=== PATIENT | male | born 1935 | race Caucasian/White ===

== ENCOUNTER 2017-04-12 07:15 | Inpatient (IN) | payer OTHER, MEDICARE ==
[2017-04-12] MEDS ORDERED: IPRATROPIUM-ALBUTEROL 3 ML NEB INHALATION STA (07:33)
--- NOTE | 2017-04-12 07:44 | ED ---
General Adult HPI - General Stated complaint: SOB Time Seen by Provider: 04/12/17 07:23 Source: patient, EMS, RN notes reviewed Mode of arrival: EMS Limitations: physical limitation - History of Present Illness Initial comments: Patient is a pleasant 82-year-old male presenting to the emergency Department with complaints of difficulty breathing and generalized weakness. Patient does wear CPAP at nighttime. Patient woke up at 3 AM to use the bathroom. Patient was too weak to get out of bed and did slide out of bed, no injury. Patient was unable to get up since that time. Patient complains of increasing shortness of breath since that time. Patient does have a history of similar symptoms previously associated with COPD and CHF. No isolated area of weakness. No confusion. - Related Data Home Medications Medication Instructions Recorded Confirmed Allopurinol [Zyloprim] 200 mg PO DAILY 06/01/14 04/12/17 Furosemide [Lasix] 40 mg PO DAILY 06/01/14 04/12/17 Ipratropium/Albuterol Sulfate 1 puff INHALATION RT-QID 06/01/14 04/12/17 [Combivent Respimat Inhaler] Lisinopril [Prinivil] 10 mg PO HS 06/01/14 04/12/17 Metoprolol Tartrate [Lopressor] 12.5 mg PO BID 06/01/14 04/12/17 Potassium Chloride [Klor-Con 10] 10 meq PO DAILY 06/01/14 04/12/17 Simvastatin [Zocor] 80 mg PO HS 06/01/14 04/12/17 Colchicine 0.6 mg PO DIRECTED PRN MDD 1.8MG 04/12/17 04/12/17 Allergies Allergy/AdvReac Type Severity Reaction Status Date / Time No Known Allergies Allergy Verified 04/12/17 07:58 Review of Systems ROS Statement: Those systems with pertinent positive or pertinent negative responses have been documented in the HPI. ROS Other: All systems not noted in ROS Statement are negative. Constitutional: Denies: fever Eyes: Denies: eye pain ENT: Denies: ear pain Respiratory: Reports: dyspnea Cardiovascular: Denies: chest pain Endocrine: Denies: fatigue Gastrointestinal: Denies: abdominal pain Genitourinary: Denies: dysuria Musculoskeletal: Denies: back pain Skin: Denies: rash Neurological: Reports: weakness Past Medical History Past Medical History: Atrial Fibrillation, Coronary Artery Disease (CAD), Heart Failure, COPD History of Any Multi-Drug Resistant Organisms: None Reported Past Surgical History: Orthopedic Surgery (Bilateral knee surgery) Additional Past Surgical History / Comment(s): eye Smoking Status: Former smoker Past Alcohol Use History: None Reported Past Drug Use History: None Reported General Exam Limitations: no limitations General appearance: alert, in no apparent distress Head exam: Present: atraumatic Eye exam: Present: normal appearance, PERRL ENT exam: Present: normal oropharynx Neck exam: Present: normal inspection Respiratory exam: Present: decreased breath sounds Cardiovascular Exam: Present: regular rate, normal rhythm GI/Abdominal exam: Present: soft. Absent: tenderness, guarding Extremities exam: Present: pedal edema (+1 bilateral which patient states is chronic), other (Patient has stool staining of both legs) Neurological exam: Present: alert, oriented X3, CN II-XII intact Expanded Patient oriented to: Present: person, place, time Speech: Present: fluid speech Sensory exam: Upper Extremity Light Touch: Normal, Lower Extremity Light Touch: Normal Motor strength exam: RUE: 5, LUE: 5, RLE: 3, LLE: 3 Psychiatric exam: Present: normal affect, normal mood Skin exam: Present: normal color Course Vital Signs 04/12/17 04/12/17 04/12/17 07:15 07:19 07:50 Temperature 97.1 F L Pulse Rate 90 83 Respiratory 26 H 26 H 24 Rate Blood Pressure 122/67 105/57 O2 Sat by Pulse 96 92 L Oximetry 04/12/17 04/12/17 04/12/17 07:52 08:01 08:05 Temperature Pulse Rate 85 89 88 Respiratory 24 Rate Blood Pressure 106/54 O2 Sat by Pulse 92 L Oximetry 04/12/17 04/12/17 04/12/17 08:20 08:52 09:05 Temperature Pulse Rate 88 87 78 Respiratory 24 24 24 Rate Blood Pressure 107/63 87/52 92/58 O2 Sat by Pulse 92 L 92 L 92 L Oximetry 04/12/17 04/12/17 04/12/17 09:08 09:39 09:46 Temperature Pulse Rate 70 Respiratory 24 Rate Blood Pressure 95/57 O2 Sat by Pulse 96 93 L Oximetry EKG Findings - EKG Comments: EKG Findings:: Sinus rhythm at 85. First-degree AV block CT of 312. QRS 120. QT 402. QTC 478. Left axis. Diffuse Q waves. No acute ST change. Poor R- wave progression. Medical Decision Making - Medical Decision Making Patient reevaluated and improving on his CPAP machine. Patient and family updated on results and plan. Case was discussed in detail with Dr. Hendrickson, who will admit for Dr. Cory Bhakta. He agrees with echo. Consults will be placed for cardiology and nephrology. Concern exists at this point with both evidence of congestive heart failure as well as renal failure and possible early rhabdomyolysis. Troponin is somewhat elevated and patient will be started on heparin. - Lab Data Result diagrams: 04/12/17 07:20 04/12/17 07:20 Lab Results 04/12/17 04/12/17 04/12/17 Range/Units 07:20 07:20 07:20 WBC 8.6 (3.8-10.6) k/uL RBC 4.12 L (4.30-5.90) m/uL Hgb 13.4 (13.0-17.5) gm/dL Hct 41.8 (39.0-53.0) % MCV 101.5 H (80.0-100.0) fL MCH 32.5 (25.0-35.0) pg MCHC 32.0 (31.0-37.0) g/dL RDW 15.6 H (11.5-15.5) % Plt Count 126 L (150-450) k/uL Neutrophils % 82 % Lymphocytes % 9 % Monocytes % 5 % Eosinophils % 2 % Basophils % 0 % Neutrophils # 7.1 (1.3-7.7) k/uL Lymphocytes # 0.7 L (1.0-4.8) k/uL Monocytes # 0.4 (0-1.0) k/uL Eosinophils # 0.2 (0-0.7) k/uL Basophils # 0.0 (0-0.2) k/uL Hypochromasia Slight Macrocytosis Slight PT (9.0-12.0) sec INR (<1.1) APTT (22.0-30.0) sec Sodium 143 (137-145) mmol/L Potassium 5.2 H (3.5-5.1) mmol/L Chloride 105 (98-107) mmol/L Carbon Dioxide 27 (22-30) mmol/L Anion Gap 11 mmol/L BUN 93 H* (9-20) mg/dL Creatinine 3.60 H (0.66-1.25) mg/dL Est GFR (MDRD) Af Amer 20 (>60 ml/min/1.73 sqM) Est GFR (MDRD) Non-Af 16 (>60 ml/min/1.73 sqM) Glucose 121 H (74-99) mg/dL Calcium 8.5 (8.4-10.2) mg/dL Magnesium 2.3 (1.6-2.3) mg/dL Total Bilirubin 1.0 (0.2-1.3) mg/dL AST 172 H (17-59) U/L ALT 111 H (21-72) U/L Alkaline Phosphatase 115 (38-126) U/L Total Creatine Kinase 3184 H (55-170) U/L CK-MB (CK-2) 50.5 H* (0.0-2.4) ng/mL CK-MB (CK-2) Rel Index Troponin I 0.331 H* (0.000-0.034) ng/mL NT-Pro-B Natriuret Pep pg/mL Total Protein 6.5 (6.3-8.2) g/dL Albumin 3.6 (3.5-5.0) g/dL 04/12/17 04/12/17 Range/Units 07:20 07:20 WBC (3.8-10.6) k/uL RBC (4.30-5.90) m/uL Hgb (13.0-17.5) gm/dL Hct (39.0-53.0) % MCV (80.0-100.0) fL MCH (25.0-35.0) pg MCHC (31.0-37.0) g/dL RDW (11.5-15.5) % Plt Count (150-450) k/uL Neutrophils % % Lymphocytes % % Monocytes % % Eosinophils % % Basophils % % Neutrophils # (1.3-7.7) k/uL Lymphocytes # (1.0-4.8) k/uL Monocytes # (0-1.0) k/uL Eosinophils # (0-0.7) k/uL Basophils # (0-0.2) k/uL Hypochromasia Macrocytosis PT 11.9 (9.0-12.0) sec INR 1.2 (<1.1) APTT 23.5 (22.0-30.0) sec Sodium (137-145) mmol/L Potassium (3.5-5.1) mmol/L Chloride (98-107) mmol/L Carbon Dioxide (22-30) mmol/L Anion Gap mmol/L BUN (9-20) mg/dL Creatinine (0.66-1.25) mg/dL Est GFR (MDRD) Af Amer (>60 ml/min/1.73 sqM) Est GFR (MDRD) Non-Af (>60 ml/min/1.73 sqM) Glucose (74-99) mg/dL Calcium (8.4-10.2) mg/dL Magnesium (1.6-2.3) mg/dL Total Bilirubin (0.2-1.3) mg/dL AST (17-59) U/L ALT (21-72) U/L Alkaline Phosphatase (38-126) U/L Total Creatine Kinase (55-170) U/L CK-MB (CK-2) (0.0-2.4) ng/mL CK-MB (CK-2) Rel Index Troponin I (0.000-0.034) ng/mL NT-Pro-B Natriuret Pep 76122 pg/mL Total Protein (6.3-8.2) g/dL Albumin (3.5-5.0) g/dL - Radiology Data Radiology results: image reviewed (Chest x-ray shows cardiomegaly, vascular congestion, small bilateral effusions.) Critical Care Time Critical Care Time: Yes Total Critical Care Time: 32 Disposition Clinical Impression: Congestive heart failure, Acute renal failure (ARF), Elevated troponin Disposition: ADMITTED IP TO THIS [facility] Condition: Serious Referrals: Chad Ashton DO [Primary Care Provider] - 1-2 days Decision Time: 09:53
--- NOTE | 2017-04-12 08:00 | XR ---
EXAMINATION TYPE: XR chest 1V portable DATE OF EXAM: 04/12/2017 HISTORY: Dyspnea. REFERENCE: NONE. FINDINGS: The heart is enlarged. There is a left-sided effusion and a smaller right-sided effusion. T here is vascular congestion without edema. IMPRESSION: 1. CARDIOMEGALY. 2. VASCULAR CONGESTION. 3. SMALL, BILATERAL EFFUSIONS.
[2017-04-12 08:08] LABS: Calcium 8.5 mg/dL (8.4-10.2); Magnesium 2.3 mg/dL (1.6-2.3); Potassium 5.2 mmol/L (3.5-5.1); Total Protein 6.5 g/dL (6.3-8.2)
[2017-04-12 08:16] LABS: INR 1.2 (<1.1); Partial Thromboplastin Time 23.5 sec (22.0-30.0); Prothrombin Time 11.9 sec (9.0-12.0)
[2017-04-12 08:21] LABS: Basophils % (A) 0 %; CH 31.2; Eosinophils # (A) 0.2 k/uL (0-0.7); Eosinophils % (A) 2 %; HCT 41.8 % (39.0-53.0); HDW 2.83; HGB 13.4 gm/dL (13.0-17.5); Hypochromasia Slight; Luc # (Auto) 0.15; Luc % (Auto) 2; Lymphocytes # (A) 0.7 k/uL (1.0-4.8); Lymphocytes % (A) 9 %; MCH 32.5 pg (25.0-35.0); MCV 101.5 fL (80.0-100.0); Macrocytosis Slight; Mean Platelet Volume 10.8; Monocytes # (A) 0.4 k/uL (0-1.0); Monocytes % (A) 5 %; Neutrophils # (A) 7.1 k/uL (1.3-7.7); Neutrophils % (A) 82 %; RBC 4.12 m/uL (4.30-5.90); RDW 15.6 % (11.5-15.5); WBC 8.6 k/uL (3.8-10.6); WBC (Perox) 8.69
[2017-04-12 08:48] LABS: Creatine Kinase MB 50.5 ng/mL (0.0-2.4); Troponin I 0.331 ng/mL (0.000-0.034)
[2017-04-12] MEDS ORDERED: ASPIRIN 325 MG TAB PO STA (09:55)
[2017-04-12] MEDS ORDERED: HEPARIN SODIUM,PORCINE 5,000 UNIT/ML 1 ML VIAL IV PRN (09:57)
[2017-04-12] MEDS ORDERED: HEPARIN SODIUM,PORCINE 5,000 UNIT/ML 1 ML VIAL IV ONE (09:57)
[2017-04-12] MEDS: HEPARIN SODIUM,PORCINE/D5W PMX 25,000 UNIT in DEXTROSE/WATER 1 500ML.BAG IV SCH (10:04)
[2017-04-12] MEDS: SODIUM CHLORIDE 0.9% 1,000 ML IV SCH (10:13)
--- NOTE | 2017-04-12 12:05 | ECHOF ---
Referral Reason:Dyspnea, CHF MEASUREMENTS -------- HEIGHT: 177.8 cm WEIGHT: 117.9 kg BP: 95/57 MV E Kai: 0.62 m/s MV DecT: 326 ms MV A Kai: 1.01 m/s MV E/A Ratio: 0.61 RAP: 5.00 mmHg RVSP: 40.13 mmHg FINDINGS -------- Undetermined rhythm. This was a technically difficult study with suboptimal views. There is mild concentric left ventricular hypertrophy. Overall left ventricular systolic function is moderately impaired with, an EF between 35 - 40 %. The right ventricle is severely enlarged. Bi-atrial enlargement. The right atrium is moderately enlarged. 1.5mg of Definity was utilized for enhancement of images Aortic valve is trileaflet and is mildly thickened. There is no evidence of aortic regurgitation. There is no evidence of aortic stenosis. The mitral valve leaflets are mildly thickened. Mild mitral annular calcification present. There is trace to mild mitral regurgitation. Mild tricuspid regurgitation present. There is mild pulmonary hypertension. The right ventricular systolic pressure, as measured by Doppler, is 40.13mmHg. The pulmonic valve was not well visualized. The aortic root size is normal. Normal inferior vena cava with normal inspiratory collapse consistent with estimated right atrial pressure of 5 mmHg. The pericardium is normal. There is no pericardial effusion. CONCLUSIONS -------- 1. Undetermined rhythm. 2. Mild mitral annular calcification present. 3. There is trace to mild mitral regurgitation. 4. Mild tricuspid regurgitation present. 5. There is mild pulmonary hypertension. 6. The right ventricular systolic pressure, as measured by Doppler, is 40.13mmHg. 7. The pulmonic valve was not well visualized. 8. The aortic root size is normal. 9. There is no pericardial effusion. 10. This was a technically difficult study with suboptimal views. 11. There is mild concentric left ventricular hypertrophy. 12. Overall left ventricular systolic function is moderately impaired with, an EF between 35 - 40 %. 13. The right ventricle is severely enlarged. 14. Bi-atrial enlargement. 15. 1.5mg of Definity was utilized for enhancement of images 16. Aortic valve is trileaflet and is mildly thickened. 17. The mitral valve leaflets are mildly thickened. DATA WAREHOUSING ARCHITECT: Moises Pedraza [facility]
[2017-04-12] MEDS: NITROGLYCERIN OINT 1 INCH/GM PACKET TOPICAL SCH ×3 (13:55→21:47)
--- NOTE | 2017-04-12 15:22 | P.HPIM ---
History of Present Illness H&P Date: 04/12/17 Chief Complaint: Difficulty breathing This is a 82-year-old gentleman with history of objective sleep apnea obesity hypertension previous history of tobacco use comes in to the hospital with complains of difficulty breathing and falls for the last 7 days Patient states that the he normally uses 3-4 L of supplemental oxygen has history of obstructive sleep apnea and uses the CPAP at night Patient apparently has been hypoxic on his basal count of oxygen and has been extremely weak. Patient does not have any history of congestive heart failure/ any history of CAD In the emergency room chest x-ray showed some concerns for mild cephalization. A BNP was elevated to 15,000 Renal dysfunction was noted At the time of my evaluation patient states that he feels slightly improved from admission No headaches blurry vision chest pain abdominal pain urinary urgency or frequency or lower extremity edema is reported no weight gain is reported no orthopnea or PND is reported apnea PND is reported Review of Systems All systems: negative (Noted in HPI) Past Medical History Past Medical History: Atrial Fibrillation, Heart Failure, COPD, Hyperlipidemia, Hypertension, Sleep Apnea/CPAP/BIPAP Additional Past Medical History / Comment(s): OPAL with CPAP, gout bilateral feet , malaria. History of Any Multi-Drug Resistant Organisms: None Reported Past Surgical History: Joint Replacement, Tonsillectomy Additional Past Surgical History / Comment(s): Total L hip arthroplasty, bilateral total knee arthroplasty, bilateral cataract removal with lens implants. Past Anesthesia/Blood Transfusion Reactions: No Reported Reaction Smoking Status: Former smoker - Past Family History Father Family Medical History: Myocardial Infarction ([place]) Additional Family Medical History / Comment(s): Father of a [place] at the age of 69yrs. Mother Family Medical History: Dementia Additional Family Medical History / Comment(s): Mother at the age of 90yrs. Medications and Allergies Home Medications Medication Instructions Recorded Confirmed Type Allopurinol [Zyloprim] 200 mg PO DAILY 06/01/14 04/12/17 History Furosemide [Lasix] 40 mg PO DAILY 06/01/14 04/12/17 History Ipratropium/Albuterol Sulfate 1 puff INHALATION RT-QID 06/01/14 04/12/17 History [Combivent Respimat Inhaler] Lisinopril [Prinivil] 10 mg PO HS 06/01/14 04/12/17 History Metoprolol Tartrate [Lopressor] 12.5 mg PO BID 06/01/14 04/12/17 History Potassium Chloride [Klor-Con 10] 10 meq PO DAILY 06/01/14 04/12/17 History Simvastatin [Zocor] 80 mg PO HS 06/01/14 04/12/17 History Colchicine 0.6 mg PO DIRECTED PRN MDD 1.8MG 04/12/17 04/12/17 History Allergies Allergy/AdvReac Type Severity Reaction Status Date / Time No Known Allergies Allergy Verified 04/12/17 07:58 Physical Exam Vitals: Vital Signs Temp Pulse Pulse Resp BP BP Pulse Ox 04/12/17 11:30 97.4 F L 99 20 120/62 95 04/12/17 11:08 97.8 F 77 24 101/52 04/12/17 09:46 93 L 04/12/17 09:39 70 24 95/57 04/12/17 09:08 96 04/12/17 09:05 78 24 92/58 92 L 04/12/17 08:52 87 24 87/52 92 L 04/12/17 08:20 88 24 107/63 92 L 04/12/17 08:05 88 24 106/54 92 L 04/12/17 08:01 89 04/12/17 07:52 85 04/12/17 07:50 83 24 105/57 92 L 04/12/17 07:19 97.1 F L 90 26 H 122/67 96 04/12/17 07:15 26 H Intake and Output 04/12/17 04/12/17 04/12/17 06:59 14:59 22:59 Intake Total 30 Output Total 400 Balance -370 Intake: Amount of Fluid Infused ( 30 ml) Oral 0 Output: Urine 400 Other: Weight 117.934 kg Patient Weight 04/13/17 06:59 Weight 117.934 kg Physical exam Gen. appearance oriented 3 in no distress Neck is supple no JVD Lungs breath sounds difficult to interpret due to the large body habitus Lower extremities chronic skin changes no significant edema noted Heart S1-S2 heard regular rate and rhythm no murmurs appreciated Abdomen is soft nontender no organomegaly bowel sounds are intact Neurologically cranial nerves II-12 grossly intact no focal motor or sensory deficits noted Skin no abnormalities appreciated Results CBC & Chem 7: 04/12/17 07:20 04/12/17 07:20 Labs: Abnormal Lab Results - Last 24 Hours (Table) 04/12/17 04/12/17 04/12/17 Range/Units 07:20 07:20 07:20 RBC 4.12 L (4.30-5.90) m/uL MCV 101.5 H (80.0-100.0) fL RDW 15.6 H (11.5-15.5) % Plt Count 126 L (150-450) k/uL Lymphocytes # 0.7 L (1.0-4.8) k/uL Potassium 5.2 H (3.5-5.1) mmol/L BUN 93 H* (9-20) mg/dL Creatinine 3.60 H (0.66-1.25) mg/dL Glucose 121 H (74-99) mg/dL AST 172 H (17-59) U/L ALT 111 H (21-72) U/L Total Creatine Kinase 3184 H (55-170) U/L CK-MB (CK-2) 50.5 H* (0.0-2.4) ng/mL Troponin I 0.331 H* (0.000-0.034) ng/mL 04/12/17 Range/Units 13:44 RBC (4.30-5.90) m/uL MCV (80.0-100.0) fL RDW (11.5-15.5) % Plt Count (150-450) k/uL Lymphocytes # (1.0-4.8) k/uL Potassium (3.5-5.1) mmol/L BUN (9-20) mg/dL Creatinine (0.66-1.25) mg/dL Glucose (74-99) mg/dL AST (17-59) U/L ALT (21-72) U/L Total Creatine Kinase (55-170) U/L CK-MB (CK-2) (0.0-2.4) ng/mL Troponin I 0.439 H* (0.000-0.034) ng/mL Thrombosis Risk Factor Assmnt - Choose All That Apply Any of the Below Risk Factors Present?: Yes Each Factor Represents 1 point: Heart failure (<1month), Obesity (BMI >25) Other Risk Factors: Yes Each Risk Factor Represents 3 Points: Age 75 years or older Other congenital or acquired thrombophilia - If yes, enter type in comment: No Thrombosis Risk Factor Assessment Total Risk Factor Score: 5 Thrombosis Risk Factor Assessment Level: High Risk Assessment and Plan Plan: Difficulty in breathing this is likely due to an acute exacerbation of systolic heart failure Mild to moderate pulmonary hypertension Objective sleep apnea Acute on chronic hypoxic respiratory failure Acute kidney injury likely prerenal due to pump failure History of hypertension Dyslipidemia Obesity Acute non-Q-wave [place] Plan Did discuss with cardiology there is no IVC compressibility with elevated right atrial pressure will attempt Lasix and an inotropic We'll obtain records from the previous hospitalization at [facility] Telemetry monitoring Strict I's and O's urine analysis urine protein and creatinine Blood pressure monitoring continue with heparinization as patient does have a troponin leak
[2017-04-12 16:23] LABS: Amorphous Sediment,Urine Rare /hpf; Appearance,Urine Cloudy (Clear); Bacteria,Urine Occasional /hpf; Bilirubin,Urine Negative (Negative); Glucose,Urine (UA) Negative (Negative); Ketones,Urine Negative (Negative); Leukocyte Esterase,Urine Negative (Negative); Mucus,Urine Rare /hpf; Nitrite,Urine Negative (Negative); Particle Count 10577; Protein,Urine 1+ (Negative); RBC,Urine <1 /hpf (0-5); Specific Gravity,Urine 1.012 (1.001-1.035); UA Billing (MACRO vs. MICRO) MICRO; Urobilinogen,Urine <2.0 mg/dL (<2.0); WBC,Urine 4 /hpf (0-5)
[2017-04-12] MEDS: DOBUTamine DRIP 500 MG in DEXTROSE/WATER 1 250ML.BAG IV SCH (17:00)
[2017-04-12] MEDS: IPRATROPIUM-ALBUTEROL 3 ML NEB INHALATION SCH ×2 (17:18→21:03)
[2017-04-12] MEDS ORDERED: TERBUTALINE FOR EXTRAVASATION 1 MG/ML VIAL SQ STA (21:10)
--- NOTE | 2017-04-12 21:12 | CT ---
EXAMINATION TYPE: CT chest wo con DATE OF EXAM: 04/12/2017 COMPARISON: NONE HISTORY: Difficulty breathing. Right sided effusion. CT DLP: 666 mGycm. Automated Exposure Control for Dose Reduction was Utilized. TECHNIQUE: CT scan of the thorax is performed without IV contrast. FINDINGS: There is patchy atelectasis at the lung bases. There is coarse interstitial infiltrate in both lungs. There is no pleural effusion. There is no sign of pulmonary mass. Heart is enlarged. Thoracic aorta is atheromatous. There is coronary artery calcification. There is no mediastinal adenopathy. There is spurring in the thoracic spine. There is no pericardial effusion. No significant pleural effusion. IMPRESSION: Pleural reaction and atelectasis at the lung bases. Fibrotic changes. Atherosclerotic vascular disease. Moderate cardiomegaly.
[2017-04-12] MEDS: FUROSEMIDE 10 MG/ML 10 ML VIAL IV SCH (21:43)
[2017-04-12] MEDS: METOPROLOL TARTRATE 12.5 MG TAB PO SCH (21:44)
[2017-04-13] MEDS: HEPARIN SODIUM,PORCINE/D5W PMX 25,000 UNIT in DEXTROSE/WATER 1 500ML.BAG IV SCH (06:41)
[2017-04-13 06:58] LABS: Basophils % (A) 0 %; CH 31.5; CHCM 30.1; Eosinophils # (A) 0.1 k/uL (0-0.7); Eosinophils % (A) 1 %; HCT 36.7 % (39.0-53.0); HDW 2.74; HGB 11.4 gm/dL (13.0-17.5); Hypochromasia Moderate; Large Platelets Flag Slight; Luc # (Auto) 0.18; Luc % (Auto) 3; Lymphocytes # (A) 0.6 k/uL (1.0-4.8); Lymphocytes % (A) 8 %; MCH 32.7 pg (25.0-35.0); MCHC 31.1 g/dL (31.0-37.0); MCV 105.1 fL (80.0-100.0); Macrocytosis Moderate; Mean Platelet Volume 11.1; Monocytes # (A) 0.3 k/uL (0-1.0); Monocytes % (A) 4 %; Neutrophils # (A) 5.9 k/uL (1.3-7.7); Neutrophils % (A) 84 %; RBC 3.49 m/uL (4.30-5.90); RDW 15.4 % (11.5-15.5); WBC (Perox) 7.04
[2017-04-13] MEDS: DOBUTamine DRIP 500 MG in DEXTROSE/WATER 1 250ML.BAG IV SCH (07:00)
[2017-04-13 07:23] LABS: Calcium 8.4 mg/dL (8.4-10.2); Potassium 4.8 mmol/L (3.5-5.1)
[2017-04-13] MEDS: ASPIRIN 325 MG TAB PO SCH (08:06)
[2017-04-13] MEDS: FUROSEMIDE 10 MG/ML 10 ML VIAL IV SCH (08:06)
[2017-04-13 08:33] LABS: Manual Review Performed; Ovalocytes Present
[2017-04-13 08:34] LABS: Polychromasia Present
[2017-04-13] MEDS: IPRATROPIUM-ALBUTEROL 3 ML NEB INHALATION SCH ×4 (08:40→20:19)
--- NOTE | 2017-04-13 10:12 | P.NPCON ---
History of Present Illness - Reason for Consult acute renal failure - History of Present Illness Reason for consultation: Acute kidney injury History of present illness: Patient is a 82-year-old male seen in renal consultation for acute kidney injury. His creatinine in 2013 was 1.16. No other prior records are available. Creatinine was 3.6 this admission and is improved to 3.1 today. Patient presented with dyspnea. Patient does have history of severe COPD as well as obstructive sleep apnea. Patient is oxygen dependent at home. Patient states he became more dyspneic last night and also fell out of bed. Patient states he was down for about 3 hours and then called the ambulance to bring him to the hospital. He is also noted to have an ejection fraction of 35-40% on echocardiogram done this admission. He has a Rodriguez catheter in place and is nonoliguric. He is currently maintained on Lasix 80 mg IV twice daily. Dobutamine was also started last night however it had to be discontinued as the systolic blood pressure dropped down to the 60s and 70s. He is currently sitting up in chair. Dyspnea is improved. Denies any vomiting or diarrhea. Denies use of NSAIDs. CT of the chest did not reveal any evidence of fluid overload. He denies any difficulty with urination. No hematuria. He is nonoliguric. Denies any family history of renal disease. Vital signs are stable. General: The patient appeared well nourished and normally developed. HEENT: Head exam is unremarkable. Neck is without jugular venous distension. LUNGS: Scattered rhonchi. Breath sounds decreased. HEART: Rate and Rhythm are regular. First and second heart sounds normal. No murmurs, rubs or gallops. ABDOMEN: Abdominal exam reveals normal bowel sounds. Non-tender and non- distended. No evidence of peritonitis. EXTREMITITES: Trace edema. Mild erythema noted. Past Medical History Past Medical History: Atrial Fibrillation, Heart Failure, COPD, Hyperlipidemia, Hypertension, Sleep Apnea/CPAP/BIPAP Additional Past Medical History / Comment(s): OPAL with CPAP, gout bilateral feet , malaria. History of Any Multi-Drug Resistant Organisms: None Reported Past Surgical History: Joint Replacement, Tonsillectomy Additional Past Surgical History / Comment(s): Total L hip arthroplasty, bilateral total knee arthroplasty, bilateral cataract removal with lens implants. Past Anesthesia/Blood Transfusion Reactions: No Reported Reaction Smoking Status: Former smoker - Past Family History Father Family Medical History: Myocardial Infarction ([place]) Additional Family Medical History / Comment(s): Father of a [place] at the age of 69yrs. Mother Family Medical History: Dementia Additional Family Medical History / Comment(s): Mother at the age of 90yrs. Medications and Allergies Home Medications Medication Instructions Recorded Confirmed Type Allopurinol [Zyloprim] 200 mg PO DAILY 06/01/14 04/12/17 History Furosemide [Lasix] 40 mg PO DAILY 06/01/14 04/12/17 History Ipratropium/Albuterol Sulfate 1 puff INHALATION RT-QID 06/01/14 04/12/17 History [Combivent Respimat Inhaler] Lisinopril [Prinivil] 10 mg PO HS 06/01/14 04/12/17 History Metoprolol Tartrate [Lopressor] 12.5 mg PO BID 06/01/14 04/12/17 History Potassium Chloride [Klor-Con 10] 10 meq PO DAILY 06/01/14 04/12/17 History Simvastatin [Zocor] 80 mg PO HS 06/01/14 04/12/17 History Colchicine 0.6 mg PO DIRECTED PRN MDD 1.8MG 04/12/17 04/12/17 History Allergies Allergy/AdvReac Type Severity Reaction Status Date / Time No Known Allergies Allergy Verified 04/12/17 07:58 Physical Exam Vitals: Vital Signs Temp Pulse Pulse Resp BP BP Pulse Ox 04/13/17 08:50 102 H 16 04/13/17 08:40 102 H 04/13/17 08:00 97.4 F L 89 19 135/99 94 L 04/13/17 06:44 104/74 04/13/17 04:00 95 18 63/42 94 L 04/13/17 00:00 96.8 F L 92 20 76/46 99 04/12/17 21:15 100 04/12/17 21:04 102 H 93 L 04/12/17 20:00 96.5 F L 101 H 20 82/46 92 L 04/12/17 15:30 97.8 F 90 24 118/58 94 L 04/12/17 11:30 97.4 F L 99 20 120/62 95 04/12/17 11:08 97.8 F 77 24 101/52 Intake and Output 04/12/17 04/13/17 04/13/17 22:59 06:59 14:59 Intake Total 445.333 874.657 7.39 Output Total 400 400 Balance 45.333 474.657 7.39 Intake: Intake, IV Titration 445.333 634.657 7.39 Amount DOBUTamine DRIP 500 mg In 141 141 Dextrose/Water 1 250ml. bag @ 5 MCG/KG/MIN 17.69 mls/hr IV .Q14H8M [facility] Rx# :[id number] Heparin Sodium,Porcine/ 144.333 333.657 7.39 D5w Pmx 25,000 unit In Dextrose/Water 1 500ml. bag @ 8.48 UNITS/KG/HR 20 mls/hr IV .Q24H [facility] Rx#: [id number] Sodium Chloride 0.9% 1, 160 160 000 ml @ 20 mls/hr IV . Q24H [facility] Rx#:[id number] Oral 240 Output: Urine 400 400 Other: Voiding Method Indwelling Catheter Indwelling Catheter Indwelling Catheter Weight 118.3 kg Results - Lab Results Most recent lab results Calcium 8.4 mg/dL (8.4-10.2) 04/13/17 06:21 Magnesium 2.3 mg/dL (1.6-2.3) 04/12/17 07:20 04/13/17 06:15 04/13/17 06:21 Assessment and Plan Plan: Assessment: #1. Nonoliguric acute kidney injury secondary to ischemic ATN secondary to cardiorenal syndrome. Renal function improving with diuresis. Creatinine was 3.6 on admission and is down to 3.1 today. #2. Systolic CHF with ejection fraction of 35-40%. #3. Hypotension. Resolved after discontinuation of dobutamine. #4. Mild volume overload. Improving. #5. Mild rhabdomyolysis from fall. Patient was also on a statin as an outpatient. #6. Dyspnea which is multifactorial in nature. Patient noted to have fibrotic changes on CT from underlying COPD as well as component of obstructive sleep apnea and mild CHF. Also concern for PE. Lower extremity Doppler pending. Plan: I will decrease Lasix to 40 mg IV twice daily. Check renal ultrasound. Maintain low salt diet. Avoid nephrotoxic agents and hypotensive episodes - statin held for now. Repeat electrolytes in the morning. Thank you for the consultation. I will continue to follow the patient with you during his hospital stay.
[2017-04-13] MEDS: SODIUM CHLORIDE 0.9% 1,000 ML IV SCH ×2 (10:49→17:23)
[2017-04-13] MEDS: NITROGLYCERIN OINT 1 INCH/GM PACKET TOPICAL SCH ×4 (10:49→21:14)
--- NOTE | 2017-04-13 11:03 | P.PN ---
Subjective This is a 82-year-old gentleman with history of objective sleep apnea obesity hypertension previous history of tobacco use comes in to the hospital with complains of difficulty breathing and falls for the last 7 days Patient states that the he normally uses 3-4 L of supplemental oxygen has history of obstructive sleep apnea and uses the CPAP at night Patient apparently has been hypoxic on his basal count of oxygen and has been extremely weak. Patient does not have any history of congestive heart failure/ any history of CAD In the emergency room chest x-ray showed some concerns for mild cephalization. A BNP was elevated to 15,000 Renal dysfunction was noted At the time of my evaluation patient states that he feels slightly improved from admission No headaches blurry vision chest pain abdominal pain urinary urgency or frequency or lower extremity edema is reported no weight gain is reported no orthopnea or PND is reported apnea PND is reported Fabiano 04/13 2017 Patient states that the she is feeling slightly better is on 10 L of supplemental oxygen Denies having any headaches blurry vision nausea vomiting diarrhea Objective - Vital Signs Vital signs: Vital Signs Temp 97.4 F L 04/13/17 08:00 Pulse 102 H 04/13/17 08:50 Resp 16 04/13/17 08:50 BP 135/99 04/13/17 08:00 Pulse Ox 94 L 04/13/17 08:00 Intake & Output 04/12/17 04/13/17 04/13/17 18:59 06:59 18:59 Intake Total 526.894 0354.657 7.39 Output Total 400 800 Balance -225.667 375.657 7.39 Weight 117.934 kg 118.3 kg Intake: Amount of Fluid Infused ( 30 ml) Intake, IV Titration 144.333 935.657 7.39 Amount DOBUTamine DRIP 500 mg In 282 Dextrose/Water 1 250ml. bag @ 5 MCG/KG/MIN 17.69 mls/hr IV .Q14H8M [facility] Rx# :[id number] Heparin Sodium,Porcine/ 144.333 333.657 7.39 D5w Pmx 25,000 unit In Dextrose/Water 1 500ml. bag @ 8.48 UNITS/KG/HR 20 mls/hr IV .Q24H [facility] Rx#: [id number] Sodium Chloride 0.9% 1, 320 000 ml @ 20 mls/hr IV . Q24H [facility] Rx#:[id number] Oral 0 240 Output: Urine 400 800 Other: Voiding Method Indwelling Catheter Indwelling Catheter - Exam Gen. appearance alert oriented 3 does not appear to be in distress Lungs diminished breath sounds however no significant crackles or rhonchi appreciated today Heart S1-S2 heard regular rate and rhythm no murmurs appreciated Abdomen is soft nontender no organomegaly however large/obese Lower extremities trace edema chronic skin changes Neuro no focal nor motor or sensory deficits noted - Labs CBC & Chem 7: 04/13/17 06:15 04/13/17 06:21 Labs: Abnormal Lab Results - Last 24 Hours (Table) 04/12/17 04/12/17 04/12/17 Range/Units 13:44 16:14 16:14 RBC (4.30-5.90) m/uL Hgb (13.0-17.5) gm/dL Hct (39.0-53.0) % MCV (80.0-100.0) fL Plt Count (150-450) k/uL Lymphocytes # (1.0-4.8) k/uL APTT (22.0-30.0) sec Chloride (98-107) mmol/L BUN (9-20) mg/dL Creatinine (0.66-1.25) mg/dL Glucose (74-99) mg/dL Creatine Kinase (55-170) U/L Troponin I 0.439 H* (0.000-0.034) ng/mL Urine Protein 1+ H (Negative) Urine Blood Large H (Negative) Amorphous Sediment Rare H (None) /hpf Urine Bacteria Occasional H (None) /hpf Urine Mucus Rare H (None) /hpf U Random Total Protein 46 H (<12) mg/dL 04/12/17 04/12/17 04/12/17 Range/Units 16:19 19:31 23:11 RBC (4.30-5.90) m/uL Hgb (13.0-17.5) gm/dL Hct (39.0-53.0) % MCV (80.0-100.0) fL Plt Count (150-450) k/uL Lymphocytes # (1.0-4.8) k/uL APTT 37.2 H 87.8 H (22.0-30.0) sec Chloride (98-107) mmol/L BUN (9-20) mg/dL Creatinine (0.66-1.25) mg/dL Glucose (74-99) mg/dL Creatine Kinase (55-170) U/L Troponin I 0.509 H* (0.000-0.034) ng/mL Urine Protein (Negative) Urine Blood (Negative) Amorphous Sediment (None) /hpf Urine Bacteria (None) /hpf Urine Mucus (None) /hpf U Random Total Protein (<12) mg/dL 04/13/17 04/13/17 04/13/17 Range/Units 06:15 06:15 06:21 RBC 3.49 L (4.30-5.90) m/uL Hgb 11.4 L (13.0-17.5) gm/dL Hct 36.7 L (39.0-53.0) % MCV 105.1 H (80.0-100.0) fL Plt Count 101 L (150-450) k/uL Lymphocytes # 0.6 L (1.0-4.8) k/uL APTT 55.1 H (22.0-30.0) sec Chloride 109 H (98-107) mmol/L BUN 89 H* (9-20) mg/dL Creatinine 3.11 H (0.66-1.25) mg/dL Glucose 127 H (74-99) mg/dL Creatine Kinase 2598 H (55-170) U/L Troponin I (0.000-0.034) ng/mL Urine Protein (Negative) Urine Blood (Negative) Amorphous Sediment (None) /hpf Urine Bacteria (None) /hpf Urine Mucus (None) /hpf U Random Total Protein (<12) mg/dL Assessment and Plan Plan: Difficulty in breathing this is likely due to an acute exacerbation of systolic heart failure Mild to moderate pulmonary hypertension Objective sleep apnea Acute on chronic hypoxic respiratory failure Acute kidney injury likely prerenal due to pump failure History of hypertension Dyslipidemia Obesity Acute non-Q-wave [place] Plan Hold off on inotropic agent due to hypotension Continue with Lasix however will be decreased to 40 twice a day Renal functions slightly improved We'll obtain a lower extremity ultrasound continue with heparinization of the patient
--- NOTE | 2017-04-13 12:23 | US ---
EXAMINATION TYPE: US venous doppler duplex LE DATE OF EXAM: 04/13/2017 11:50 AM COMPARISON: NONE CLINICAL HISTORY: rule out PE. Bilateral edema SIDE PERFORMED: Bilateral TECHNIQUE: The lower extremity deep venous system is examined utilizing real time linear array sonog clif with graded compression, doppler sonography and color-flow sonography. VESSELS IMAGED: External Iliac Vein (EIV) Common Femoral Vein Deep Femoral Vein Greater Saphenous Vein * Femoral Vein Popliteal Vein Small Saphenous Vein * Proximal Calf Veins (* superficial vessels) No popliteal fossa lesion was seen. Right Leg: Negative for DVT Left Leg: Negative for DVT IMPRESSION: THIS EXAMINATION IS NEGATIVE FOR DVT WITHIN BOTH LEGS.
--- NOTE | 2017-04-13 13:37 | CONS ---
Mr. Mcelroy is an 82-year-old gentleman who is seen for cardiac evaluation. The history was obtained from the patient and the chart as well as the patient's daughters. This patient has been having difficulty in breathing over the last 2 weeks which is progressively getting worse. Patient has some generalized weakness. Patient woke up this morning at 3:00 to go to the bathroom. He was too weak to get out of the bed and he did slide out of the bed. Patient did not have injury. He was lying in the floor for a few hours. This patient has a history of COPD, history of congestive cardiac failure. He does have some swelling in the legs. There is no definite previous history of myocardial infarction. Patient has been followed by Dr. Sabina Gilliam for his lung problem. Patient's home medications include Zyloprim once a day, Lasix, Combivent, Prinivil, Zocor, and Colchicine. Past medical history includes questionable history of atrial fibrillation, patient currently is in normal sinus rhythm, history of bilateral knee surgery, history of COPD, heart failure. SOCIAL HISTORY: Patient is a former smoker. PHYSICAL EXAMINATION: At present reveals an 82-year-old gentleman who is obesely build, does not appear to be in any acute distress. Patient's blood pressure is 120/62 mmHg, heart rate is 80 per minute. HEENT: Examination is negative. NECK: Supple. Jugular venous pressure is difficult to assess. Both the carotid pulses are felt, there is no bruit. Chest is symmetrical. HEART: The PMI is not felt. First and second heart sounds are normal. Lung examination reveals bilateral scattered wheezes. Abdomen is soft. EXTREMITIES : There is a 2+ pedal edema. EKG shows normal sinus rhythm with a question of poor R-wave progression from V1 to V6 which could be suggestive of possible old anterior wall myocardial infarction. This patient's BMP is 16,000. Patient's BUN is 93 and creatinine is 3.6. Hemoglobin is 13.4. Chest x-ray is suggestive of congestive cardiac failure, Echocardiogram reveals global hypokinesia with an ejection fraction of 30% to 35%. IVC is dilated but it is not collapsed and suggestive of elevated right atrial pressure. FINAL IMPRESSION: This patient has symptoms of shortness of breath which is due to the combination of left ventricular systolic failure as well as the cor pulmonale. Patient does have a moderate to severely impaired left ventricular systolic function and elevated right atrial pressure. Patient has elevated BUN and creatinine which are part of the cardiorenal syndrome. Discussed the condition with Dr. Burgess. We will try the patient on IV Lasix and Dobutamine drip and nephrologic consultation is obtained. Further adjustment in the meds as necessary. MTDD
[2017-04-13] MEDS: HEPARIN SODIUM,PORCINE 5,000 UNIT/ML 1 ML VIAL SQ SCH (21:00)
[2017-04-13] MEDS: FUROSEMIDE 10 MG/ML 4 ML VIAL IV SCH (21:14)
[2017-04-14] MEDS: SODIUM CHLORIDE 0.9% 1,000 ML IV SCH (05:55)
[2017-04-14 06:24] LABS: Calcium 8.7 mg/dL (8.4-10.2); Potassium 4.6 mmol/L (3.5-5.1)
[2017-04-14 06:53] LABS: Basophils % (A) 0 %; CH 30.8; CHCM 29.7; Eosinophils # (A) 0.2 k/uL (0-0.7); Eosinophils % (A) 2 %; HCT 40.4 % (39.0-53.0); HDW 2.76; HGB 12.4 gm/dL (13.0-17.5); Hypochromasia Marked; Luc # (Auto) 0.12; Luc % (Auto) 2; Lymphocytes # (A) 0.9 k/uL (1.0-4.8); Lymphocytes % (A) 12 %; MCH 31.9 pg (25.0-35.0); MCHC 30.6 g/dL (31.0-37.0); MCV 104.2 fL (80.0-100.0); Macrocytosis Moderate; Mean Platelet Volume 10.6; Monocytes # (A) 0.3 k/uL (0-1.0); Monocytes % (A) 4 %; Neutrophils # (A) 5.9 k/uL (1.3-7.7); Neutrophils % (A) 79 %; RBC 3.88 m/uL (4.30-5.90); RDW 15.4 % (11.5-15.5); WBC 7.5 k/uL (3.8-10.6); WBC (Perox) 7.38
--- NOTE | 2017-04-14 07:34 | XR ---
EXAMINATION TYPE: XR chest 1V portable DATE OF EXAM: 04/14/2017 Comparison: 04/12/2017 Clinical History: 82-year-old male follow-up CHF Findings: Heart remains borderline enlarged. Similar mild diffuse interstitial prominence. Some residual patchy density peripheral left base, improved from prior exam. Impression: Improved aeration at the left base. Some residual atelectasis/infiltrate remains.
[2017-04-14] MEDS: IPRATROPIUM-ALBUTEROL 3 ML NEB INHALATION SCH ×4 (08:31→20:34)
[2017-04-14] MEDS: NITROGLYCERIN OINT 1 INCH/GM PACKET TOPICAL SCH ×2 (09:13→19:07)
[2017-04-14] MEDS: FUROSEMIDE 10 MG/ML 4 ML VIAL IV SCH ×2 (09:14→21:36)
[2017-04-14] MEDS: ASPIRIN 325 MG TAB PO SCH (09:14)
[2017-04-14] MEDS: HEPARIN SODIUM,PORCINE 5,000 UNIT/ML 1 ML VIAL SQ SCH ×2 (09:14→23:45)
[2017-04-14] MEDS: METOPROLOL TARTRATE 12.5 MG TAB PO SCH ×2 (09:14→21:36)
--- NOTE | 2017-04-14 09:57 | US ---
EXAMINATION TYPE: US kidneys/renal and bladder DATE OF EXAM: 04/13/2017 COMPARISON: NONE CLINICAL HISTORY: 82-year-old male with MIGUEL. Patient refused completion of bedside renal/bladder US f rom 04/13/17 and for 04/14/17. TECHNIQUE: Multiple sonographic images of the kidneys and bladder were obtained. FINDINGS: Right Kidney: 8.8 x 4.0 x 4.9 cm without hydronephrosis. Left Kidney: not assessed as patient refused. Bladder not assessed as patient refused. IMPRESSION: 1. No hydronephrosis on the right. Changes suggest chronic medical renal disease. 2. The patient refused study completion for the second day in a row. The left kidney and bladder are not assessed.
--- NOTE | 2017-04-14 10:24 | P.PN ---
Subjective This is an 82-year-old male seen in consultation because of congestive heart failure, acute kidney injury and cardiorenal syndrome. He was on Lasix and the yesterday pressure went down to the 60s therefore IV normal saline was started 75 mL an hour. This morning is feeling better less short of breath still has significant edema about 3+ all over up to his upper thighs. His urine output is 3450 intake is 1106 for the last 24 hours. His appetite is fair and improving. His creatinine is slightly improved from 3.1-2.7. Yesterday he refuses ultrasound fci through the procedure. Right kidney was measured 80.8 cm been left kidney was not measured. Patient is known with atrial fibrillation and COPD severe sleep apnea, chronic stasis edema. He is ejection fraction is 35-40%. Objective - Vital Signs Vital signs: Vital Signs Temp 96.8 F L 04/14/17 08:00 Pulse 109 H 04/14/17 08:00 Resp 18 04/14/17 08:00 BP 143/80 04/14/17 08:00 Pulse Ox 91 L 04/14/17 08:00 Intake & Output 04/13/17 04/14/17 04/14/17 18:59 06:59 18:59 Intake Total 506.39 600 100 Output Total 1000 2450 Balance -493.61 -1850 100 Weight 117.7 kg 117.7 kg Intake: IV 154 Heparin Sodium,Porcine/ 154 D5w Pmx 25,000 unit In Dextrose/Water 1 500ml. bag @ 8.48 UNITS/KG/HR 20 mls/hr IV .Q24H [facility] Rx#: [id number] Intake, IV Titration 127.39 600 Amount Heparin Sodium,Porcine/ 7.39 D5w Pmx 25,000 unit In Dextrose/Water 1 500ml. bag @ 8.48 UNITS/KG/HR 20 mls/hr IV .Q24H [facility] Rx#: [id number] Sodium Chloride 0.9% 1, 120 000 ml @ 20 mls/hr IV . Q24H [facility] Rx#:[id number] Sodium Chloride 0.9% 1, 600 000 ml @ 75 mls/hr IV . [id number] [facility] Rx#:[id number] Oral 225 100 Output: Urine 1000 2450 Other: Voiding Method Indwelling Catheter Indwelling Catheter Indwelling Catheter On examination he is sitting up in a chair. He is on CPAP. JVP is difficult to see. Neck is supple no facial asymmetry Lungs are significant for occasional bilateral basal crackles with diminished air entry. No dullness to percussion. Heart sounds are unremarkable except for atrial fibrillation. Abdomen is somewhat protuberant but nontender Extremity exam was 3+ edema Neurologically awake alert oriented but generalized weakness. - Labs CBC & Chem 7: 04/14/17 06:03 04/14/17 06:03 Labs: Abnormal Lab Results - Last 24 Hours (Table) 04/14/17 04/14/17 Range/Units 06:03 06:03 RBC 3.88 L (4.30-5.90) m/uL Hgb 12.4 L (13.0-17.5) gm/dL MCV 104.2 H (80.0-100.0) fL MCHC 30.6 L (31.0-37.0) g/dL Plt Count 111 L (150-450) k/uL Lymphocytes # 0.9 L (1.0-4.8) k/uL BUN 78 H (9-20) mg/dL Creatinine 2.71 H (0.66-1.25) mg/dL Assessment and Plan Plan: Impression. 1. Acute kidney injury secondary to cardiorenal syndrome with respiratory response to Lasix creatinine improved from 3.1-2.7. 2. Transient hypotension yesterday with blood in the 68 systolic range. He was given IV fluid 75 an hour since then. The cause of this hypotension is not clear he is on metoprolol 12.5 twice a day. 3. Significant and severe edema 3+ secondary to combination of congestive heart failure chronic kidney disease and obstructive sleep apnea. UA shows 1+ proteinuria on 04/12/2017 urine protein to creatinine ratio is less than 0.5 g. 4. Cardiomyopathy ejection fraction 35%. 5. Mild rhabdomyolysis with CK 2598 as of yesterday 04/13/2017. Recommendation. Hold off IV fluids and maintain the diuresis. Watch blood pressure closely, will attempt to reduce his edema very slowly with careful monitoring of his BUN/ creatinine at lites.
--- NOTE | 2017-04-14 11:32 | PN ---
This patient is admitted with symptoms of shortness of breath. The patient does have underlying history of chronic lung disease, COPD and being on oxygen at home. The patient was admitted with shortness of breath and it was rather difficult to estimate the patient's volume status. The patient was started on Dobutamine and Lasix. He became hypotensive during the night and Dobutamine was discontinued. The patient's creatinine is improved from 3.6 to 3.1. The patient is comfortable. He denies any orthopnea or PND. CT scan of the chest was performed which did not show any evidence of significant fluid overload. Today, the patient has only mild swelling in the legs. Lungs are fairly clear to auscultation and percussion. First and second heart sounds are normal. It appears that the patient is euvolemic and not significant hypervolemic. I will give him IV fluids at 75 mL per hour. We will monitor his chest x-ray and see if there is any improvement in the patient's ( ) and repeat the chest x-ray tomorrow and follow her chest x-ray and monitor the volume status clinically. VICK
--- NOTE | 2017-04-14 14:35 | P.PN ---
Subjective Principal diagnosis: Shortness of breath This is a 82-year-old gentleman seen in consultation by Dr. VC Rodriguez. He presented to the hospital with symptoms of shortness of breath. Patient does have underlying history of chronic lung disease, COPD, on home O2. Initially on presentation here was difficult to estimate the patient's volume status, he was primarily initiated on Lasix drip and dobutamine drip. He became hypotensive and dobutamine was discontinued. Computed tomography scan of the chest was performed which did not reveal any evidence of significant fluid overload. It appears that the patient is more euvolemic and not significantly hypervolemic. He is currently receiving IV fluids at 75 mL an hour along with IV push Lasix. Overall he does state that he is feeling better today. Chest x-ray from today reveals improved aeration to the left lung base. His weight is down 1 kg. Diuresis well. Creatinine 2.7 today, BUN 78, potassium 4.6. Objective - Vital Signs Vital signs: Vital Signs Temp 96.8 F L 04/14/17 08:00 Pulse 89 04/14/17 12:00 Resp 18 04/14/17 12:00 BP 95/50 04/14/17 12:00 Pulse Ox 90 L 04/14/17 12:00 Intake & Output 04/13/17 04/14/17 04/14/17 18:59 06:59 18:59 Intake Total 506.39 600 100 Output Total 1000 2450 Balance -493.61 -1850 100 Weight 117.7 kg 117.7 kg Intake: IV 154 Heparin Sodium,Porcine/ 154 D5w Pmx 25,000 unit In Dextrose/Water 1 500ml. bag @ 8.48 UNITS/KG/HR 20 mls/hr IV .Q24H [facility] Rx#: [id number] Intake, IV Titration 127.39 600 Amount Heparin Sodium,Porcine/ 7.39 D5w Pmx 25,000 unit In Dextrose/Water 1 500ml. bag @ 8.48 UNITS/KG/HR 20 mls/hr IV .Q24H [facility] Rx#: [id number] Sodium Chloride 0.9% 1, 120 000 ml @ 20 mls/hr IV . Q24H [facility] Rx#:[id number] Sodium Chloride 0.9% 1, 600 000 ml @ 75 mls/hr IV . [id number] [facility] Rx#:[id number] Oral 225 100 Output: Urine 1000 2450 Other: Voiding Method Indwelling Catheter Indwelling Catheter Indwelling Catheter - Exam PHYSICAL EXAMINATION: HEENT: Head is atraumatic, normocephalic. Pupils equal, round. Neck is supple. There is no elevated jugular venous pressure. HEART EXAMINATION: Heart S1, S2 normal. No murmur or gallop heard. CHEST EXAMINATION: Lungs reveal fine scattered wheezes throughout. ABDOMEN: Soft, nontender. Bowel sounds are heard. No organomegaly noted]. EXTREMITIES:[ 2+ peripheral pulses with 2= evidence of peripheral edema and no calf tenderness noted]. NEUROLOGIC [patient is awake, alert and oriented -3.] . - Labs CBC & Chem 7: 04/14/17 06:03 04/14/17 06:03 Labs: Abnormal Lab Results - Last 24 Hours (Table) 04/14/17 04/14/17 Range/Units 06:03 06:03 RBC 3.88 L (4.30-5.90) m/uL Hgb 12.4 L (13.0-17.5) gm/dL MCV 104.2 H (80.0-100.0) fL MCHC 30.6 L (31.0-37.0) g/dL Plt Count 111 L (150-450) k/uL Lymphocytes # 0.9 L (1.0-4.8) k/uL BUN 78 H (9-20) mg/dL Creatinine 2.71 H (0.66-1.25) mg/dL Assessment and Plan (1) Systolic CHF, acute on chronic Status: Acute (2) Sleep apnea Status: Acute (3) COPD (chronic obstructive pulmonary disease) Status: Acute (4) Chronic edema Status: Acute (5) Acute renal failure (ARF) Status: Acute Plan: Cardiology's perspective, we will recommend to continue the patient on IV fluids at 75 mL per hour, patient appears to be more euvolemic and not much congestive cardiac failure at this time. We will continue to check daily labs. DNP note has been reviewed, I agree with a documented findings and plan of care. Patient was seen and examined.
[2017-04-14 14:54] LABS: Calcium 9.1 mg/dL (8.4-10.2); Potassium 5.5 mmol/L (3.5-5.1)
--- NOTE | 2017-04-14 18:03 | P.PN ---
Subjective This is a 82-year-old gentleman with history of objective sleep apnea obesity hypertension previous history of tobacco use comes in to the hospital with complains of difficulty breathing and falls for the last 7 days Patient states that the he normally uses 3-4 L of supplemental oxygen has history of obstructive sleep apnea and uses the CPAP at night Patient apparently has been hypoxic on his basal count of oxygen and has been extremely weak. Patient does not have any history of congestive heart failure/ any history of CAD In the emergency room chest x-ray showed some concerns for mild cephalization. A BNP was elevated to 15,000 Renal dysfunction was noted At the time of my evaluation patient states that he feels slightly improved from admission No headaches blurry vision chest pain abdominal pain urinary urgency or frequency or lower extremity edema is reported no weight gain is reported no orthopnea or PND is reported apnea PND is reported Fabiano 04/13 2017 Patient states that the she is feeling slightly better is on 10 L of supplemental oxygen Denies having any headaches blurry vision nausea vomiting diarrhea 04/14/2017 Patient denies having any chest pain difficulty in breathing nausea vomiting States that his breathing is improved from previous days No diarrhea is reported Objective - Vital Signs Vital signs: Vital Signs Temp 96.8 F L 04/14/17 08:00 Pulse 94 04/14/17 16:15 Resp 20 04/14/17 16:00 BP 102/56 04/14/17 16:00 Pulse Ox 95 04/14/17 16:00 Intake & Output 04/13/17 04/14/17 04/14/17 18:59 06:59 18:59 Intake Total 506.39 600 300 Output Total 1000 2450 Balance -493.61 -1850 300 Weight 117.7 kg 117.7 kg Intake: IV 154 Heparin Sodium,Porcine/ 154 D5w Pmx 25,000 unit In Dextrose/Water 1 500ml. bag @ 8.48 UNITS/KG/HR 20 mls/hr IV .Q24H [facility] Rx#: [id number] Intake, IV Titration 127.39 600 Amount Heparin Sodium,Porcine/ 7.39 D5w Pmx 25,000 unit In Dextrose/Water 1 500ml. bag @ 8.48 UNITS/KG/HR 20 mls/hr IV .Q24H [facility] Rx#: [id number] Sodium Chloride 0.9% 1, 120 000 ml @ 20 mls/hr IV . Q24H [facility] Rx#:[id number] Sodium Chloride 0.9% 1, 600 000 ml @ 75 mls/hr IV . [id number] [facility] Rx#:[id number] Oral 225 300 Output: Urine 1000 2450 Other: Voiding Method Indwelling Catheter Indwelling Catheter Indwelling Catheter - Exam Gen. appearance alert oriented 3 does not appear to be in distress Lungs diminished breath sounds however no significant crackles or rhonchi appreciated today Heart S1-S2 heard regular rate and rhythm no murmurs appreciated Abdomen is soft nontender no organomegaly however large/obese Lower extremities trace edema chronic skin changes Neuro no focal nor motor or sensory deficits noted - Labs CBC & Chem 7: 04/14/17 06:03 04/14/17 13:47 Labs: Abnormal Lab Results - Last 24 Hours (Table) 04/14/17 04/14/17 04/14/17 Range/Units 06:03 06:03 13:47 RBC 3.88 L (4.30-5.90) m/uL Hgb 12.4 L (13.0-17.5) gm/dL MCV 104.2 H (80.0-100.0) fL MCHC 30.6 L (31.0-37.0) g/dL Plt Count 111 L (150-450) k/uL Lymphocytes # 0.9 L (1.0-4.8) k/uL Potassium 5.5 H (3.5-5.1) mmol/L BUN 78 H 84 H* (9-20) mg/dL Creatinine 2.71 H 2.90 H (0.66-1.25) mg/dL Glucose 110 H (74-99) mg/dL Assessment and Plan Plan: Difficulty in breathing this is likely due to an acute exacerbation of systolic heart failure Mild to moderate pulmonary hypertension Objective sleep apnea Acute on chronic hypoxic respiratory failure Acute kidney injury likely prerenal due to pump failure History of hypertension Dyslipidemia Obesity Acute non-Q-wave [place] Plan DC IV fluids Increase subcu heparin to 5000 units every 8 hours Continue Lasix IV every 12 hours Strict I's and O's
[2017-04-14] MEDS ORDERED: QUEtiapine 25 MG TAB PO PRN (21:18)
[2017-04-15 06:49] LABS: Basophils % (A) 0 %; CH 30.6; CHCM 29.3; Eosinophils # (A) 0.2 k/uL (0-0.7); Eosinophils % (A) 2 %; HDW 2.81; Hypochromasia Marked; Large Platelets Flag Slight; Luc # (Auto) 0.18; Luc % (Auto) 2; Lymphocytes # (A) 1.2 k/uL (1.0-4.8); Lymphocytes % (A) 11 %; MCH 32.3 pg (25.0-35.0); MCHC 30.8 g/dL (31.0-37.0); MCV 104.8 fL (80.0-100.0); Macrocytosis Moderate; Mean Platelet Volume 10.9; Monocytes # (A) 0.4 k/uL (0-1.0); Monocytes % (A) 3 %; Neutrophils # (A) 9.5 k/uL (1.3-7.7); Neutrophils % (A) 83 %; RBC 4.01 m/uL (4.30-5.90); RDW 15.4 % (11.5-15.5); WBC 11.5 k/uL (3.8-10.6); WBC (Perox) 11.77
[2017-04-15 06:57] LABS: Calcium 9.3 mg/dL (8.4-10.2); Potassium 4.9 mmol/L (3.5-5.1); Total Bilirubin 1.1 mg/dL (0.2-1.3); Total Protein 6.3 g/dL (6.3-8.2)
[2017-04-15] MEDS: IPRATROPIUM-ALBUTEROL 3 ML NEB INHALATION SCH ×4 (08:35→20:42)
[2017-04-15] MEDS: HEPARIN SODIUM,PORCINE 5,000 UNIT/ML 1 ML VIAL SQ SCH ×3 (09:35→20:10)
[2017-04-15] MEDS: ASPIRIN 325 MG TAB PO SCH (09:36)
[2017-04-15] MEDS: FUROSEMIDE 10 MG/ML 4 ML VIAL IV SCH ×2 (09:36→20:09)
[2017-04-15] MEDS: METOPROLOL TARTRATE 12.5 MG TAB PO SCH ×2 (09:36→20:10)
--- NOTE | 2017-04-15 09:44 | P.PN ---
Subjective This is an 82-year-old male seen in consultation because of congestive heart failure, acute kidney injury and cardiorenal syndrome. He also has obstructive sleep apnea and is on CPAP. [facility] blood pressure went down to the 60s on 04/13/2017 and therefore he was started IV normal saline. Yesterday's discontinued the saline and he was maintained on the Lasix 40 mg twice a day. This morning s continues to feel slow improvement with less shortness of breath ability to stand on his feet. Appetite is fair and improved. No nausea vomiting dizziness chest pain shortness of breath or cough. His vital signs remained stable blood pressure is in the 84 TO 126 range but mostly in the 90s. 24-hour intake is documented at 300 mL output at 1300 mL. Day before Yesterday he refuses ultrasound skilled nursing through the procedure. Right kidney was measured 8.8 cm been left kidney was not measured. Patient is known with atrial fibrillation and COPD severe sleep apnea, chronic stasis edema. He is ejection fraction is 35-40%. Objective - Vital Signs Vital signs: Vital Signs Temp 97.1 F L 04/15/17 04:00 Pulse 96 04/15/17 08:40 Resp 20 04/15/17 08:00 BP 126/75 04/15/17 08:00 Pulse Ox 93 L 04/15/17 08:36 Intake & Output 04/14/17 04/15/17 04/15/17 18:59 06:59 18:59 Intake Total 300 180 Output Total 1300 Balance 300 -1300 180 Weight 117.7 kg 117.4 kg 117.4 kg Intake: Oral 300 180 Output: Urine 1300 Other: Voiding Method Indwelling Catheter Indwelling Catheter Indwelling Catheter Examination is obese male currently sitting in a chair and comfortable. He has taken his CPAP off and is on nasal cannula oxygen. HEENT exam JVP is difficult to see. Lung exam shows somewhat diminished air entry bilaterally no crackles. No dullness to percussion. Heart sounds are unremarkable for any murmur rub gallop. He is in atrial fibrillation. Abdomen is soft nontender but protuberant Extremity examination reveals 1-2+ edema. Neurologically awake alert oriented. No focal motor deficit - Labs CBC & Chem 7: 04/15/17 06:11 04/15/17 06:11 Labs: Abnormal Lab Results - Last 24 Hours (Table) 04/14/17 04/15/17 04/15/17 Range/Units 13:47 06:11 06:11 WBC 11.5 H (3.8-10.6) k/uL RBC 4.01 L (4.30-5.90) m/uL MCV 104.8 H (80.0-100.0) fL MCHC 30.8 L (31.0-37.0) g/dL Plt Count 118 L (150-450) k/uL Neutrophils # 9.5 H (1.3-7.7) k/uL Potassium 5.5 H (3.5-5.1) mmol/L BUN 84 H* 80 H* (9-20) mg/dL Creatinine 2.90 H 2.67 H (0.66-1.25) mg/dL Glucose 110 H (74-99) mg/dL AST 152 H (17-59) U/L ALT 125 H (21-72) U/L Assessment and Plan Plan: Impression. 1. Acute kidney injury secondary to cardiorenal syndrome with fair response to Lasix creatinine improved from 3.1-2.7 > 2.9>2.67. 2. Transient hypotension DAY BEFORE yesterday with blood in the 68 systolic range. He was given IV fluid 75 an hour since then. The cause of this hypotension is not clear he is on metoprolol 12.5 twice a day. Today's blood pressure is somewhat better and remains on Lasix 3. Significant and severe edema 2+ Improved, etiology is secondary to combination of congestive heart failure chronic kidney disease and obstructive sleep apnea. UA shows 1+ proteinuria on 04/12/2017 urine protein to creatinine ratio is less than 0.5 g. 4. Cardiomyopathy ejection fraction 35%. 5. Mild rhabdomyolysis with CK 2598 as of yesterday 04/13/2017. Recommendation. He may need dobutamine. As his creatinine is improved and he is feeling better We will maintain the diuresis, and not start dobutamine yet . Watch blood pressure closely, will attempt to reduce his edema very slowly with careful monitoring of his BUN/creatinine at lites.
--- NOTE | 2017-04-15 15:41 | P.PN ---
Subjective This is a 82-year-old gentleman with history of objective sleep apnea obesity hypertension previous history of tobacco use comes in to the hospital with complains of difficulty breathing and falls for the last 7 days Patient states that the he normally uses 3-4 L of supplemental oxygen has history of obstructive sleep apnea and uses the CPAP at night Patient apparently has been hypoxic on his basal count of oxygen and has been extremely weak. Patient does not have any history of congestive heart failure/ any history of CAD In the emergency room chest x-ray showed some concerns for mild cephalization. A BNP was elevated to 15,000 Renal dysfunction was noted At the time of my evaluation patient states that he feels slightly improved from admission No headaches blurry vision chest pain abdominal pain urinary urgency or frequency or lower extremity edema is reported no weight gain is reported no orthopnea or PND is reported apnea PND is reported Fabiano 04/13 2017 Patient states that the she is feeling slightly better is on 10 L of supplemental oxygen Denies having any headaches blurry vision nausea vomiting diarrhea 04/14/2017 Patient denies having any chest pain difficulty in breathing nausea vomiting States that his breathing is improved from previous days No diarrhea is reported 04/15/2017 Patient is doing better No fevers chills nausea vomiting diarrhea reported Since his breathing is significantly improved Objective - Vital Signs Vital signs: Vital Signs Temp 96.5 F L 04/15/17 15:36 Pulse 83 04/15/17 15:36 Resp 22 04/15/17 15:36 BP 122/60 04/15/17 15:36 Pulse Ox 91 L 04/15/17 15:36 Intake & Output 04/14/17 04/15/17 04/15/17 18:59 06:59 18:59 Intake Total 300 360 Output Total 1300 Balance 300 -1300 360 Weight 117.7 kg 117.4 kg 117.4 kg Intake: Oral 300 360 Output: Urine 1300 Other: Voiding Method Indwelling Catheter Indwelling Catheter Indwelling Catheter - Exam Gen. appearance alert oriented 3 does not appear to be in distress Lungs diminished breath sounds however no significant crackles or rhonchi appreciated today Heart S1-S2 heard regular rate and rhythm no murmurs appreciated Abdomen is soft nontender no organomegaly however large/obese Lower extremities trace edema chronic skin changes Neuro no focal nor motor or sensory deficits noted - Labs CBC & Chem 7: 04/15/17 06:11 07/09/17 06:11 Labs: Abnormal Lab Results - Last 24 Hours (Table) 04/15/17 04/15/17 Range/Units 06:11 06:11 WBC 11.5 H (3.8-10.6) k/uL RBC 4.01 L (4.30-5.90) m/uL MCV 104.8 H (80.0-100.0) fL MCHC 30.8 L (31.0-37.0) g/dL Plt Count 118 L (150-450) k/uL Neutrophils # 9.5 H (1.3-7.7) k/uL BUN 80 H* (9-20) mg/dL Creatinine 2.67 H (0.66-1.25) mg/dL AST 152 H (17-59) U/L ALT 125 H (21-72) U/L Assessment and Plan Plan: Difficulty in breathing this is likely due to an acute exacerbation of systolic heart failure Mild to moderate pulmonary hypertension Objective sleep apnea Acute on chronic hypoxic respiratory failure Acute kidney injury likely prerenal due to pump failure History of hypertension Dyslipidemia Obesity Acute non-Q-wave AL Plan Increase subcu heparin to 5000 units every 8 hours Continue Lasix IV every 12 hours Strict I's and O's Repeat labs in a.m. Titrated down O2 as tolerated
[2017-04-16 06:43] LABS: Calcium 9.1 mg/dL (8.4-10.2); Potassium 5.4 mmol/L (3.5-5.1)
[2017-04-16 06:50] LABS: Basophils % (A) 0 %; CH 30.6; CHCM 29.1; Eosinophils # (A) 0.1 k/uL (0-0.7); Eosinophils % (A) 1 %; HCT 40.9 % (39.0-53.0); HDW 2.77; HGB 12.4 gm/dL (13.0-17.5); Hypochromasia Marked; Large Platelets Flag Slight; Luc # (Auto) 0.12; Luc % (Auto) 1; Lymphocytes # (A) 0.8 k/uL (1.0-4.8); Lymphocytes % (A) 7 %; MCH 32.1 pg (25.0-35.0); MCHC 30.4 g/dL (31.0-37.0); MCV 105.7 fL (80.0-100.0); Macrocytosis Moderate; Mean Platelet Volume 10.5; Monocytes # (A) 0.3 k/uL (0-1.0); Monocytes % (A) 3 %; Neutrophils # (A) 9.6 k/uL (1.3-7.7); Neutrophils % (A) 88 %; RBC 3.87 m/uL (4.30-5.90); RDW 15.3 % (11.5-15.5); WBC 10.9 k/uL (3.8-10.6); WBC (Perox) 11.41
[2017-04-16 08:15] LABS: Toxic Granulation Present
[2017-04-16 08:16] LABS: Ovalocytes Present
[2017-04-16] MEDS: IPRATROPIUM-ALBUTEROL 3 ML NEB INHALATION SCH ×4 (08:19→20:34)
[2017-04-16] MEDS: FUROSEMIDE 10 MG/ML 4 ML VIAL IV SCH (08:22)
--- NOTE | 2017-04-16 08:53 | XR ---
EXAMINATION TYPE: XR chest 1V portable DATE OF EXAM: 04/16/2017 CLINICAL HISTORY: Difficulty breathing progress study. TECHNIQUE: Single AP portable upright view of the chest is obtained. COMPARISON: Chest x-ray from 2 days earlier. FINDINGS: Osseous structures are demineralized. Cardiac silhouette size is stable and mildly enlarge d with atherosclerotic thoracic aorta. There is persistent left basilar opacity slightly more promine nt. There is persistent patchy right basilar opacity. Upper lungs remain clear without pneumothorax. IMPRESSION: Cardiomegaly with persistent patchy right basilar atelectasis and/or infiltrate felt stab le. Worsening left basilar infiltrate and/or atelectasis and probable small left pleural effusion not ed.
[2017-04-16] MEDS: HEPARIN SODIUM,PORCINE 5,000 UNIT/ML 1 ML VIAL SQ SCH ×3 (11:28→23:14)
[2017-04-16] MEDS ORDERED: SODIUM POLYSTYRENE SULFONATE 15 GM/60 ML BOTTLE PO STA (12:13)
--- NOTE | 2017-04-16 12:24 | PN ---
The patient is seen for follow up for acute kidney injury. His creatinine has been at about 2.9 from initial reading of 3.6 mgDL. It did go down to 2.67 yesterday and is back up to 2.9. The patient has had good urine output. He was significantly short of breath this morning but has been placed on BIPAP and his oxygenation and his respiratory status has improved. He did receive fluids for about 24 hours when his blood pressure had dropped yesterday. He is maintained on Lasix IV 40 mg q12 hours. The patient's blood pressure is staying a bit on the lower side with systolic about 96 to 92 mmHg. He states overall he is feeling better. No complaints of chest pain. On examination, blood pressure 92/53. Heart rate 90 per minute. He is afebrile. O2 sats 93%. He is on BIPAP. FIO2 at 50. HEENT atraumatic, normocephalic. Examination of the heart S1, S2. No rub is heard. Examination of the lungs, decreased breath sounds at the bases. Abdomen soft. Morbidly obese. examination of the lower extremities shows edema 1+ bilaterally. GEAR TESTER exam is grossly intact. The patient is moving all four extremities. Labs show sodium 144, potassium 5.4, chloride 103, BUN 94, serum creatinine 2.98. CK was at 2598 on initial admission. AST 152, ALT 125. Hemoglobin at 12.4 gmDL. ASSESSMENT: 1. Acute kidney injury most likely acute tubular necrosis with perhaps and element of cardiorenal syndrome initially. The patient has been maintained on Lasix. His repeat chest x-ray shows significant worsening of fluid overload. He has not received Lopressor. His blood pressure remains on the lower side. He has had good urine output. I will hold off on the IV fluids for now. We can hold the Lasix as well for now and repeat his labs tomorrow. 2. Cardiomyopathy, ejection fraction 35% with some degree of volume overload perhaps initially but not significant element of volume overload noted presently. 3. Rhabdomyolysis with CK at 2598 on initial admission. We will repeat another level with labs tomorrow. 4. Chronic kidney disease with protein creatinine ratio of about 0.5 gm Previous creatinine 1.16 in 2013. We do not have any labs prior to this admission. We do not have any other labs prior to this admission. 5. Obstructive sleep apnea, currently maintained on BIPAP. PLAN: Hold off on IV fluids. Kayexalate times one. Hold IV Lasix as well as repeat labs in the a.m. Maintain the patient on BIPAP. MTDD
[2017-04-16] MEDS: METOPROLOL TARTRATE 12.5 MG TAB PO SCH ×2 (15:09→20:41)
[2017-04-16] MEDS: ASPIRIN 325 MG TAB PO SCH (15:09)
--- NOTE | 2017-04-16 16:25 | P.PN ---
Subjective Principal diagnosis: Shortness of breath This is a 82-year-old gentleman seen in consultation by Dr. VC Rodriguez. He presented to the hospital with symptoms of shortness of breath. Patient does have underlying history of chronic lung disease, COPD, on home O2. Initially on presentation here was difficult to estimate the patient's volume status, he was primarily initiated on Lasix drip and dobutamine drip. He became hypotensive and dobutamine was discontinued. Computed tomography scan of the chest was performed which did not reveal any evidence of significant fluid overload. It appears that the patient is more euvolemic and not significantly hypervolemic. He is currently receiving IV fluids at 75 mL an hour along with IV push Lasix. Overall he does state that he is feeling better today. Chest x-ray from today reveals improved aeration to the left lung base. His weight is down 1 kg. Diuresis well. Creatinine 2.7 today, BUN 78, potassium 4.6. 04/16/2017 Patient seen and examined this morning, extremely short of breath earlier in the morning, his BiPAP was not on properly, once this was repositioned on the patient, breathing improved significantly and his oxygen saturation improved. He had good urine output through the night last night. Yesterday patient's creatinine went down to 2.6, back up to 2.9 today. He did receive IV fluids for approximately 24 hours. He is currently maintained on Lasix 40 IV twice a day. Blood pressure in the 90s systolic. Overall patient does state he is feeling better. Objective - Vital Signs Vital signs: Vital Signs Temp 97.6 F 04/16/17 12:11 Pulse 99 04/16/17 12:11 Resp 21 04/16/17 12:11 BP 80/52 04/16/17 12:11 Pulse Ox 93 L 04/16/17 08:23 Intake & Output 04/15/17 04/16/17 04/16/17 18:59 06:59 18:59 Intake Total 360 510 Output Total 1000 400 Balance 360 -490 -400 Weight 117.4 kg 119 kg 119 kg Intake: IV 30 0.9 30 Oral 360 480 Output: Urine 1000 400 Uretheral (Rodriguez) 400 400 Other: Voiding Method Indwelling Catheter Indwelling Catheter Indwelling Catheter # Voids 0 - Exam PHYSICAL EXAMINATION: HEENT: Head is atraumatic, normocephalic. Pupils equal, round. Neck is supple. There is no elevated jugular venous pressure. HEART EXAMINATION: Heart S1, S2 normal. No murmur or gallop heard. CHEST EXAMINATION: Lungs reveal fine scattered wheezes throughout. ABDOMEN: Soft, nontender. Bowel sounds are heard. No organomegaly noted]. EXTREMITIES:[ 2+ peripheral pulses with 1+evidence of peripheral edema and no calf tenderness noted]. NEUROLOGIC [patient is awake, alert and oriented -3.] . - Labs CBC & Chem 7: 04/16/17 05:52 04/16/17 05:55 Labs: Abnormal Lab Results - Last 24 Hours (Table) 04/16/17 04/16/17 Range/Units 05:52 05:55 WBC 10.9 H (3.8-10.6) k/uL RBC 3.87 L (4.30-5.90) m/uL Hgb 12.4 L (13.0-17.5) gm/dL MCV 105.7 H (80.0-100.0) fL MCHC 30.4 L (31.0-37.0) g/dL Plt Count 111 L (150-450) k/uL Neutrophils # 9.6 H (1.3-7.7) k/uL Lymphocytes # 0.8 L (1.0-4.8) k/uL Potassium 5.4 H (3.5-5.1) mmol/L BUN 94 H* (9-20) mg/dL Creatinine 2.98 H (0.66-1.25) mg/dL Glucose 102 H (74-99) mg/dL Assessment and Plan (1) Systolic CHF, acute on chronic Status: Acute (2) Sleep apnea Status: Acute (3) COPD (chronic obstructive pulmonary disease) Status: Acute (4) Chronic edema Status: Acute (5) Acute renal failure (ARF) Status: Acute Plan: From Cardiology's perspective, we will recommend decreasing the dose of Lasix because of the hypotension. We will also decrease the patient's aspirin to 81 mg daily, continue to monitor daily lytes BUN creatinine and daily blood pressure. DNP note has been reviewed, I agree with a documented findings and plan of care. Patient was seen and examined.
--- NOTE | 2017-04-16 16:51 | PN ---
Mr. Mcelroy is an 82 year old male with known history of chronic obstructive lung disease, who came with fluid overload and evidence of with worsening edema. He is feeling better today. He has a history of systolic dysfunction. He denies any dizziness. No palpitations. He denies any nausea. His energy has improved some today. He is tolerating oral intake without any difficulty. He continues to be at this time on aspirin, Lasix 40 mg IV q12 hours, Metoprolol tartrate 12.5 mg twice a day. Physical examination: Blood pressure 126/70 with a heart rate in the 90s, lungs no wheezes. Heart S1, S2, no S3, no rub. Abdomen soft, obese, nontender. Extremities +1 edema bilaterally. Lab data revealed BUN and creatinine 18 and 2.67, improved compared to yesterday. Potassium 4.9, hemoglobin 13, white blood cell count 11.5. IMPRESSION: 1. Congestive heart failure improving. 2. Chronic obstructive lung disease. 3. Renal failure. 4. Obesity. RECOMMENDATIONS: From the cardiac standpoint, we will continue the present therapy. Follow his renal function. Depending on his progress, further recommendations will be made. VICK
--- NOTE | 2017-04-16 17:57 | P.PN ---
Subjective This is a 82-year-old gentleman with history of objective sleep apnea obesity hypertension previous history of tobacco use comes in to the hospital with complains of difficulty breathing and falls for the last 7 days Patient states that the he normally uses 3-4 L of supplemental oxygen has history of obstructive sleep apnea and uses the CPAP at night Patient apparently has been hypoxic on his basal count of oxygen and has been extremely weak. Patient does not have any history of congestive heart failure/ any history of CAD In the emergency room chest x-ray showed some concerns for mild cephalization. A BNP was elevated to 15,000 Renal dysfunction was noted At the time of my evaluation patient states that he feels slightly improved from admission No headaches blurry vision chest pain abdominal pain urinary urgency or frequency or lower extremity edema is reported no weight gain is reported no orthopnea or PND is reported apnea PND is reported Fabiano 04/13 2017 Patient states that the she is feeling slightly better is on 10 L of supplemental oxygen Denies having any headaches blurry vision nausea vomiting diarrhea 04/14/2017 Patient denies having any chest pain difficulty in breathing nausea vomiting States that his breathing is improved from previous days No diarrhea is reported 04/15/2017 Patient is doing better No fevers chills nausea vomiting diarrhea reported Since his breathing is significantly improved 04/16/2017 Patient's CPAP apparently stopped abruptly working overnight Has had an episode of significant respiratory distress this morning Had to be started on BiPAP at 10 over 5 at 50% FiO2 Patient is awake is able to answer questions states to be feeling okay denies having any chest pain headaches blurry vision diarrhea Objective - Vital Signs Vital signs: Vital Signs Temp 98.1 F 04/16/17 16:00 Pulse 99 04/16/17 16:00 Resp 21 04/16/17 16:00 BP 127/66 04/16/17 16:00 Pulse Ox 96 04/16/17 16:58 Intake & Output 04/15/17 04/16/17 04/16/17 18:59 06:59 18:59 Intake Total 360 510 Output Total 1000 400 Balance 360 -490 -400 Weight 117.4 kg 119 kg 119 kg Intake: IV 30 0.9 30 Oral 360 480 Output: Urine 1000 400 Uretheral (Rodriguez) 400 400 Other: Voiding Method Indwelling Catheter Indwelling Catheter Indwelling Catheter # Voids 0 - Exam Gen. appearance alert oriented 3 does not appear to be in distress Lungs diminished breath sounds however no significant crackles or rhonchi appreciated today Heart S1-S2 heard regular rate and rhythm no murmurs appreciated Abdomen is soft nontender no organomegaly however large/obese Lower extremities trace edema chronic skin changes Neuro no focal nor motor or sensory deficits noted - Labs CBC & Chem 7: 04/16/17 05:52 04/16/17 05:55 Labs: Abnormal Lab Results - Last 24 Hours (Table) 04/16/17 04/16/17 Range/Units 05:52 05:55 WBC 10.9 H (3.8-10.6) k/uL RBC 3.87 L (4.30-5.90) m/uL Hgb 12.4 L (13.0-17.5) gm/dL MCV 105.7 H (80.0-100.0) fL MCHC 30.4 L (31.0-37.0) g/dL Plt Count 111 L (150-450) k/uL Neutrophils # 9.6 H (1.3-7.7) k/uL Lymphocytes # 0.8 L (1.0-4.8) k/uL Potassium 5.4 H (3.5-5.1) mmol/L BUN 94 H* (9-20) mg/dL Creatinine 2.98 H (0.66-1.25) mg/dL Glucose 102 H (74-99) mg/dL Assessment and Plan Plan: Difficulty in breathing this is likely due to an acute exacerbation of systolic heart failure Mild to moderate pulmonary hypertension Objective sleep apnea Acute on chronic hypoxic respiratory failure Acute kidney injury likely prerenal due to pump failure History of hypertension Dyslipidemia Obesity Acute non-Q-wave PR Plan Increase subcu heparin to 5000 units every 8 hours Midrin will be added as patient has relatively episodes of hypotension renal function slightly worsened DC Lasix Continue BiPAP use here as patient's CPAP is dysfunctional We'll repeat a chest x-ray in the a.m. Chest x-ray findings of bilateral infiltrates was not seen on the initial computed tomography scan Hold off on antibiotic therapy at this time.
[2017-04-16] MEDS: MIDODRINE 5 MG TAB PO SCH (18:09)
[2017-04-17] MEDS: MIDODRINE 5 MG TAB PO SCH (06:05)
[2017-04-17 07:29] LABS: Basophils % (A) 0 %; CH 30.7; CHCM 28.9; Eosinophils # (A) 0.1 k/uL (0-0.7); Eosinophils % (A) 1 %; HCT 40.3 % (39.0-53.0); HDW 2.75; HGB 12.4 gm/dL (13.0-17.5); Hypochromasia Marked; Large Platelets Flag Moderate; Luc # (Auto) 0.14; Luc % (Auto) 1; Lymphocytes # (A) 0.6 k/uL (1.0-4.8); Lymphocytes % (A) 4 %; MCH 32.9 pg (25.0-35.0); MCHC 30.8 g/dL (31.0-37.0); MCV 106.8 fL (80.0-100.0); Macrocytosis Moderate; Mean Platelet Volume 11.9; Monocytes # (A) 0.3 k/uL (0-1.0); Monocytes % (A) 2 %; Neutrophils # (A) 13.4 k/uL (1.3-7.7); Neutrophils % (A) 92 %; RBC 3.77 m/uL (4.30-5.90); RDW 15.5 % (11.5-15.5); WBC 14.6 k/uL (3.8-10.6); WBC (Perox) 14.37
[2017-04-17 07:46] LABS: Calcium 9.1 mg/dL (8.4-10.2); Manual Review Performed; Total Bilirubin 0.9 mg/dL (0.2-1.3)
[2017-04-17 07:51] LABS: Potassium 6.5 mmol/L (3.5-5.1)
--- NOTE | 2017-04-17 08:17 | XR ---
EXAMINATION TYPE: XR chest 1V portable DATE OF EXAM: 04/17/2017 Comparison: 04/16/2017 Clinical History: 82-year-old male shortness of breath, difficulty in breathing Findings: Marked leftward patient rotation alters the normal cardia mediastinal contours. The heart margins are secured. There is a trace right effusion and increasing now moderate to large left pleural effusion. Impression: 1. Suboptimal, rotated exam. There is increasing, now moderate to large left pleural effusion with ad jacent atelectasis and/or consolidation. Clinically correlate. 2. Trace effusion on the right.
[2017-04-17] MEDS: IPRATROPIUM-ALBUTEROL 3 ML NEB INHALATION SCH ×4 (08:25→19:00)
--- NOTE | 2017-04-17 09:09 | CONS ---
A very poor historian. An 82-year-old gentleman who we were asked to see because of shortness of breath. He was admitted way back on April 12, 2017 and we are just being consulted today on April 16. Anyway, the patient apparently presented with complaints of shortness of breath. He was weak and was not able to get out of the bed to go to the bathroom. The patient apparently had shortness of breath for a few hours at least prior to admission. He presented to the emergency room with complaints of shortness of breath. He apparently was diagnosed with having hypoxemia and dyspnea secondary to both CHF and acute renal failure. The patient is again, very poor historian and even made some more by the fact that he is on BiPAP currently. The BiPAP settings are 10 and 5 and 50%. Again, just consulted today. On admission, the patient's chest x-ray showed cardiomegaly and vascular congestion. He had a CT of the chest, which showed patchy atelectasis and infiltrates at the lung bases. He had cardiomegaly. Venous Doppler study was negative for DVT in both lower extremities and follow up chest x-ray on 04/14 showed some improvement in the patient's aeration. His home medications included Zyloprim, Lasix, Combivent, Respimat, Lisinopril, metoprolol, potassium, Zocor and colchicine. ALLERGIES: Denied. Medical history was positive for atrial fibrillation, CAD, heart failure, COPD, hypertension, hyperlipidemia, and gout. Surgical history includes bilateral knee surgery. Social history is positive for previous tobacco use. No alcohol or illicit drug use. Family and occupational history is not known. Cannot be obtained at this time. Review of systems is currently unreliable. According to the ER jm, the patient's major issue was shortness of breath. Current vital signs include temperature 97.3, heart rate 88, respiratory rate 20 , blood pressure 92/53, mean 66 and saturation 93% on BiPAP 10 and 5 and 50%. Appears in no acute distress. HEENT: Grossly unremarkable. Difficult to exam because of BiPAP mask. NECK: Supple. Full range of motion. No adenopathy. No neck vein distention. CARDIOVASCULAR: Examination reveals distant heart sounds. S1, S2 normal. Heart rate in the mid-80s. LUNGS: Reveals a few scattered crackles. There are some expiratory rhonchi as well. ABDOMEN: Obese. Bowel sounds are heard. EXTREMITIES: Intact. Minimal edema. SKIN: Without rash. X-rays are reviewed as mentioned above. Labs are reviewed. White count 10.9, hemoglobin 12.4, hematocrit 40.9, platelet count 111,000. Sodium 144, potassium 5.4, chloride 103, CO2 29, BUN and creatinine 94 and 2.98. The rest of the labs look reasonable. N-terminal proBNP on the day of admission was 16,400 suggesting fluid overload/CHF. ASSESSMENT: 1. Shortness of breath with hypoxemia, likely multifactorial but primarily related to underlying fluid overload. 2. Possible underlying chronic obstructive pulmonary disease. 3. History of atrial fibrillation. 4. Coronary artery disease. 5. History of heart failure. 6. Previous tobacco history. 7. Gout. 8. History of hyperlipidemia. 9. Hypertension by history. PLAN: Will continue to follow. Prognosis is poor. He is a NO CODE. No additional recommendations are made. Medications are reviewed. VICK
[2017-04-17 09:11] LABS: Glucose,Whole Blood 109 mg/dL (75-99)
[2017-04-17] MEDS ORDERED: NOREPINEPHRIN 4 MG-0.9% NS PMX 4 MG/250 ML ML IV ONE (09:55)
[2017-04-17] MEDS ORDERED: FUROSEMIDE 10 MG/ML 10 ML VIAL IV STA (09:58)
[2017-04-17] MEDS ORDERED: DEXTROSE 50%-WATER 50 ML SYRINGE IVP STA (09:58)
[2017-04-17] MEDS ORDERED: CALCIUM GLUCONATE 1,000 MG in SODIUM CHLORIDE 0.9% 100 ML IVPB ONE (10:00)
[2017-04-17] MEDS ORDERED: INSULIN REGULAR 100 UNIT/ML VIAL IV ONE (10:00)
[2017-04-17] MEDS: METOPROLOL TARTRATE 12.5 MG TAB PO SCH (10:35)
[2017-04-17] MEDS ORDERED: DEXTROSE 10 % IN WATER 125 ML IV STA (10:39)
[2017-04-17 10:52] LABS: ABG PCO2 87 mmHg (35-45); ABG PH 7.11 (7.35-7.45)
[2017-04-17 10:53] LABS: ABG Base Excess -2.4 mmol/L; ABG HCO3 26 mmol/L (21-25); ABG Oxygen Saturation 85.6 % (94-97); ABG PO2 71 mmHg (83-108); ABG TCO2 29 mmol/L (19-24)
[2017-04-17] MEDS: NOREPINEPHRIN 16 MG-0.9%NS PMX 16 MG/250 ML ML IV SCH ×2 (11:02→15:29)
[2017-04-17] MEDS: SODIUM POLYSTYRENE SULFONATE 15 GM/60 ML BOTTLE PO SCH ×3 (11:18→14:43)
[2017-04-17] MEDS: HEPARIN SODIUM,PORCINE 5,000 UNIT/ML 1 ML VIAL SQ SCH ×2 (11:18→15:30)
--- NOTE | 2017-04-17 11:29 | P.PN ---
Subjective Principal diagnosis: Acute hypoxic respiratory failure This is an 82-year-old gentleman who was admitted with shortness of breath and hypoxemia secondary to congestive heart failure. The patient also has acute renal failure. He was seen and evaluated yesterday by Dr. Anne the patient was placed on BiPAP at 10/5 and 50%. He was doing fairly well throughout the evening until early this morning he developed worsening shortness of breath and required FiO2 to be increased to 100% to maintain O2 saturations in the 90s. Subsequently an a team was called and he was transferred to the intensive care unit where he is seen again today in follow-up. He is currently alert and arousable. He did become quite hypotensive and is currently on norepinephrine at 50 mcg/m. He was also found to be hyperkalemic with an potassium level of 6.5 and worsening renal failure current creatinine 4.06. Nephrology is on the case as well. Kayexalate has been ordered. The plan is for Lasix once his blood pressure recovers. Arterial blood gases on 100% FiO2 revealed a PaO2 of 71, pCO2 of 87 and pH of 7.11. Today's chest x-ray shows increasing moderate to large left pleural effusion with adjacent atelectasis/consolidation. There is a trace right pleural effusion. Objective - Vital Signs Vital signs: Vital Signs Temp 97.8 F 04/17/17 08:43 Pulse 109 H 04/17/17 11:01 Resp 31 H 04/17/17 10:00 BP 55/35 04/17/17 10:00 Pulse Ox 93 L 04/17/17 10:00 Intake & Output 04/16/17 04/17/17 04/17/17 18:59 06:59 18:59 Intake Total 540 30 Output Total 400 100 0 Balance -400 440 30 Weight 119 kg 117 kg Intake: IV 60 30 0.9 20 20 Invasive Line 4 10 Invasive Line 5 30 10 Oral 480 Output: Urine 400 100 0 Uretheral (Rodriguez) 400 Other: Voiding Method Indwelling Catheter Indwelling Catheter Indwelling Catheter # Voids 0 - Exam GENERAL EXAM: Alert, fairly comfortable in no apparent distress. HEAD: Normocephalic. EYES: Normal reaction of pupils, equal size. NOSE: Clear with pink turbinates. THROAT: No erythema or exudates. Scarring of question of previous trach. NECK: No masses, no JVD. CHEST: No chest wall deformity. LUNGS: Equal air entry with crackles in the posterior bases more so on the left diminished greater on the left. CVS: S1 and S2 normal with audible murmur, regular rhythm. ABDOMEN: No hepatosplenomegaly, normal bowel sounds, no guarding or rigidity. Extremities: There is 1-2+ lower extremity peripheral edema. No clubbing, no cyanosis. Faint peripheral pulses are intact. - Labs CBC & Chem 7: 04/17/17 06:15 04/17/17 06:15 Labs: Abnormal Lab Results - Last 24 Hours (Table) 04/17/17 04/17/17 04/17/17 Range/Units 06:15 06:15 09:09 WBC 14.6 H (3.8-10.6) k/uL RBC 3.77 L (4.30-5.90) m/uL Hgb 12.4 L (13.0-17.5) gm/dL MCV 106.8 H (80.0-100.0) fL MCHC 30.8 L (31.0-37.0) g/dL Plt Count 104 L (150-450) k/uL Neutrophils # 13.4 H (1.3-7.7) k/uL Lymphocytes # 0.6 L (1.0-4.8) k/uL ABG pH (7.35-7.45) ABG pCO2 (35-45) mmHg ABG pO2 (83-108) mmHg ABG HCO3 (21-25) mmol/L ABG Total CO2 (19-24) mmol/L ABG O2 Saturation (94-97) % Sodium 146 H (137-145) mmol/L Potassium 6.5 H* (3.5-5.1) mmol/L BUN 113 H* (9-20) mg/dL Creatinine 4.06 H (0.66-1.25) mg/dL Glucose 105 H (74-99) mg/dL POC Glucose (mg/dL) 109 H (75-99) mg/dL AST 83 H (17-59) U/L ALT 106 H (21-72) U/L Creatine Kinase 598 H (55-170) U/L Total Protein 6.0 L (6.3-8.2) g/dL Albumin 3.2 L (3.5-5.0) g/dL 07/11/17 Range/Units 10:40 WBC (3.8-10.6) k/uL RBC (4.30-5.90) m/uL Hgb (13.0-17.5) gm/dL MCV (80.0-100.0) fL MCHC (31.0-37.0) g/dL Plt Count (150-450) k/uL Neutrophils # (1.3-7.7) k/uL Lymphocytes # (1.0-4.8) k/uL ABG pH 7.11 L* (7.35-7.45) ABG pCO2 87 H* (35-45) mmHg ABG pO2 71 L (83-108) mmHg ABG HCO3 26 H (21-25) mmol/L ABG Total CO2 29 H (19-24) mmol/L ABG O2 Saturation 85.6 L (94-97) % Sodium (137-145) mmol/L Potassium (3.5-5.1) mmol/L BUN (9-20) mg/dL Creatinine (0.66-1.25) mg/dL Glucose (74-99) mg/dL POC Glucose (mg/dL) (75-99) mg/dL AST (17-59) U/L ALT (21-72) U/L Creatine Kinase (55-170) U/L Total Protein (6.3-8.2) g/dL Albumin (3.5-5.0) g/dL Assessment and Plan Plan: Impression: #1 Acute hypoxic respiratory failure secondary to worsening acute on chronic systolic congestive heart failure. #2 Acute exacerbation of systolic congestive heart failure. Ejection fraction between 35 and 40%. #3 Moderate to large left pleural effusion worsening on today's chest x-ray. #4 Paroxysmal atrial fibrillation. #5 Acute renal failure, creatinine 4.06. #6 Hyperkalemia secondary to renal failure, current potassium 6.5. #7 History of coronary artery disease. #8 History of chronic obstructive pulmonary disease. #9 Hypertension, history of. #10 Hyperlipidemia. #11 History of gout. Plan: The patient was seen and evaluated by Dr. Anne. He had a lengthy discussion with the patient's daughter who is somewhat unclear as to what the patient would want regarding CODE STATUS. Yesterday's conversation with Dr. Anne the patient expressed a desire to be DO NOT INTUBATE/DO NOT RESUSCITATE. This morning during his distress he stated he would want to be intubated if necessary. We'll continue with BiPAP support for now and see how he does. We' ll continue to titrate the norepinephrine as needed. His hyperkalemia will be corrected. We will plan to do a thoracentesis of the left pleural effusion once the patient stabilizes. In the interim we'll continue with bronchodilators. Utilize diuretics per nephrology. We'll keep him here in the intensive care unit and monitor him closely. We will continue to follow. Critical care time 42 minutes not including procedures. Time with Patient: Greater than 30
[2017-04-17] MEDS ORDERED: HYDROCORTISONE SUCCINATE 100 MG/2 ML VIAL IV STA ×2 (11:43→18:33)
[2017-04-17] MEDS ORDERED: NALOXONE 0.4 MG/ML 1 ML VIAL IV PRN (11:47)
[2017-04-17 12:27] LABS: ABG Base Excess -3.3 mmol/L; ABG HCO3 25 mmol/L (21-25); ABG Oxygen Saturation 84.9 % (94-97); ABG PCO2 81 mmHg (35-45); ABG PH 7.12 (7.35-7.45); ABG PO2 68 mmHg (83-108); ABG TCO2 28 mmol/L (19-24)
[2017-04-17 12:37] LABS: Glucose,Whole Blood 124 mg/dL (75-99)
[2017-04-17] MEDS ORDERED: PROPOFOL 50 ML IV ONE (14:25)
[2017-04-17] MEDS: PROPOFOL 500 MG in EMPTY BAG 1 BAG IV SCH ×6 (14:37→23:10)
[2017-04-17 15:08] LABS: ABG HCO3 24 mmol/L (21-25); ABG PCO2 74 mmHg (35-45); ABG PH 7.14 (7.35-7.45); ABG PO2 59 mmHg (83-108); ABG TCO2 26 mmol/L (19-24)
[2017-04-17 15:09] LABS: ABG Base Excess -3.9 mmol/L
--- NOTE | 2017-04-17 15:16 | XR ---
EXAMINATION TYPE: XR chest 1V portable DATE OF EXAM: 04/17/2017 Comparison: 04/17/2017, earlier today Clinical History: 82-year-old male Tube placement Findings: ET tube tip is located approximately 2.4 cm from the luisito. NG tube courses below the diaphragm. Hea rt is mildly enlarged. Moderate sized left pleural effusion appears slightly decreased from recent pr ior. Mild diffuse interstitial prominence is noted. Impression: 1. Satisfactory ET and NG tubes. 2. Moderate left pleural effusion with adjacent atelectasis and/or consolidation. 3. Correlate to exclude CHF as a possible etiology. Underlying infiltrate can be excluded clinically. 4. Trace effusion on the right.
[2017-04-17] MEDS ORDERED: SODIUM CHLORIDE 0.9% 500 ML IV ONE (16:12)
--- NOTE | 2017-04-17 16:16 | P.PN ---
Subjective This is a 82-year-old gentleman with history of objective sleep apnea obesity hypertension previous history of tobacco use comes in to the hospital with complains of difficulty breathing and falls for the last 7 days Patient states that the he normally uses 3-4 L of supplemental oxygen has history of obstructive sleep apnea and uses the CPAP at night Patient apparently has been hypoxic on his basal count of oxygen and has been extremely weak. Patient does not have any history of congestive heart failure/ any history of CAD In the emergency room chest x-ray showed some concerns for mild cephalization. A BNP was elevated to 15,000 Renal dysfunction was noted At the time of my evaluation patient states that he feels slightly improved from admission No headaches blurry vision chest pain abdominal pain urinary urgency or frequency or lower extremity edema is reported no weight gain is reported no orthopnea or PND is reported apnea PND is reported Fabiano 04/13 2017 Patient states that the she is feeling slightly better is on 10 L of supplemental oxygen Denies having any headaches blurry vision nausea vomiting diarrhea 04/14/2017 Patient denies having any chest pain difficulty in breathing nausea vomiting States that his breathing is improved from previous days No diarrhea is reported 04/15/2017 Patient is doing better No fevers chills nausea vomiting diarrhea reported Since his breathing is significantly improved 04/16/2017 Patient's CPAP apparently stopped abruptly working overnight Has had an episode of significant respiratory distress this morning Had to be started on BiPAP at 10 over 5 at 50% FiO2 Patient is awake is able to answer questions states to be feeling okay denies having any chest pain headaches blurry vision diarrhea 04/17/2017 Patient is clinically worsen or night has not been tolerating BiPAP or graft patient previously has stated that he would like to be DO NOT RESUSCITATE and no aggressive measures including hemodialysis at one point However has change his mind and stated that he would want endotracheal intubation and support Discussed the case with pulmonary therapeutic recreation specialist as well. Family to agree those with the previous recommendations however they would like to attempt a short duration of nonsupport During the time of my evaluation patient is not arousable Objective - Vital Signs Vital signs: Vital Signs Temp 96.8 F L 04/17/17 12:00 Pulse 109 H 04/17/17 15:45 Resp 24 04/17/17 15:00 BP 83/41 04/17/17 14:45 Pulse Ox 98 04/17/17 15:00 Intake & Output 04/16/17 04/17/17 04/17/17 18:59 06:59 18:59 Intake Total 540 631.887 Output Total 400 100 312 Balance -400 440 319.887 Weight 119 kg 117 kg Intake: IV 60 355 0.9 20 120 Calcium Gluconate 1,000 100 mg In Sodium Chloride 0.9 % 100 ml @ 100 mls/hr IVPB ONCE ONE Rx#: [id number] Dextrose 10 % in Water 125 125 ml @ 500 mls/hr IV ONCE STA Rx#:[id number] Invasive Line 4 10 Invasive Line 5 30 10 Intake, IV Titration 276.887 Amount Norepinephrin 16 mg-0.9% 260.156 Ns Pmx 16 mg In 250 ml @ Titrate IV .Q0M [facility] Rx#: [id number] Propofol 500 mg In Empty 16.731 Bag 1 bag @ Titrate IV . Q0M [facility] Rx#:[id number] Oral 480 Output: Gastric Drainage 300 Urine 400 100 12 Uretheral (Rodriguez) 400 Other: Voiding Method Indwelling Catheter Indwelling Catheter Indwelling Catheter # Voids 0 ABP, PAP, CO, CI - Last Documented Arterial Blood Pressure 112/53 - Exam Gen. appearance not arousable Lungs diminished breath sounds, significant crackles or rhonchi appreciated today Heart S1-S2 heard regular rate and rhythm no murmurs appreciated Abdomen is soft nontender no organomegaly however large/obese Lower extremities trace edema chronic skin changes Neuro deferred - Labs CBC & Chem 7: 04/17/17 06:15 04/17/17 12:56 Labs: Abnormal Lab Results - Last 24 Hours (Table) 04/17/17 04/17/17 04/17/17 Range/Units 06:15 06:15 09:09 WBC 14.6 H (3.8-10.6) k/uL RBC 3.77 L (4.30-5.90) m/uL Hgb 12.4 L (13.0-17.5) gm/dL MCV 106.8 H (80.0-100.0) fL MCHC 30.8 L (31.0-37.0) g/dL Plt Count 104 L (150-450) k/uL Neutrophils # 13.4 H (1.3-7.7) k/uL Lymphocytes # 0.6 L (1.0-4.8) k/uL ABG pH (7.35-7.45) ABG pCO2 (35-45) mmHg ABG pO2 (83-108) mmHg ABG HCO3 (21-25) mmol/L ABG Total CO2 (19-24) mmol/L ABG O2 Saturation (94-97) % ABG Lactic Acid (0.5-1.6) mmol/L Sodium 146 H (137-145) mmol/L Potassium 6.5 H* (3.5-5.1) mmol/L BUN 113 H* (9-20) mg/dL Creatinine 4.06 H (0.66-1.25) mg/dL Glucose 105 H (74-99) mg/dL POC Glucose (mg/dL) 109 H (75-99) mg/dL AST 83 H (17-59) U/L ALT 106 H (21-72) U/L Creatine Kinase 598 H (55-170) U/L Total Protein 6.0 L (6.3-8.2) g/dL Albumin 3.2 L (3.5-5.0) g/dL 04/17/17 04/17/17 04/17/17 Range/Units 10:40 11:00 12:15 WBC (3.8-10.6) k/uL RBC (4.30-5.90) m/uL Hgb (13.0-17.5) gm/dL MCV (80.0-100.0) fL MCHC (31.0-37.0) g/dL Plt Count (150-450) k/uL Neutrophils # (1.3-7.7) k/uL Lymphocytes # (1.0-4.8) k/uL ABG pH 7.11 L* 7.12 L* (7.35-7.45) ABG pCO2 87 H* 81 H* (35-45) mmHg ABG pO2 71 L 68 L (83-108) mmHg ABG HCO3 26 H (21-25) mmol/L ABG Total CO2 29 H 28 H (19-24) mmol/L ABG O2 Saturation 85.6 L 84.9 L (94-97) % ABG Lactic Acid 2.3 H* (0.5-1.6) mmol/L Sodium (137-145) mmol/L Potassium (3.5-5.1) mmol/L BUN (9-20) mg/dL Creatinine (0.66-1.25) mg/dL Glucose (74-99) mg/dL POC Glucose (mg/dL) (75-99) mg/dL AST (17-59) U/L ALT (21-72) U/L Creatine Kinase (55-170) U/L Total Protein (6.3-8.2) g/dL Albumin (3.5-5.0) g/dL 04/17/17 04/17/17 04/17/17 Range/Units 12:36 12:56 14:00 WBC (3.8-10.6) k/uL RBC (4.30-5.90) m/uL Hgb (13.0-17.5) gm/dL MCV (80.0-100.0) fL MCHC (31.0-37.0) g/dL Plt Count (150-450) k/uL Neutrophils # (1.3-7.7) k/uL Lymphocytes # (1.0-4.8) k/uL ABG pH 7.14 L* (7.35-7.45) ABG pCO2 74 H* (35-45) mmHg ABG pO2 59 L (83-108) mmHg ABG HCO3 (21-25) mmol/L ABG Total CO2 26 H (19-24) mmol/L ABG O2 Saturation 80.0 L (94-97) % ABG Lactic Acid (0.5-1.6) mmol/L Sodium (137-145) mmol/L Potassium 5.8 H (3.5-5.1) mmol/L BUN (9-20) mg/dL Creatinine (0.66-1.25) mg/dL Glucose (74-99) mg/dL POC Glucose (mg/dL) 124 H (75-99) mg/dL AST (17-59) U/L ALT (21-72) U/L Creatine Kinase (55-170) U/L Total Protein (6.3-8.2) g/dL Albumin (3.5-5.0) g/dL Assessment and Plan Plan: Difficulty in breathing this is likely due to an acute exacerbation of systolic heart failure Mild to moderate pulmonary hypertension Objective sleep apnea Acute on chronic hypoxic and hypercapnic respiratory failure Acute kidney injury likely prerenal due to pump failure History of hypertension Dyslipidemia Obesity Acute non-Q-wave [place] Plan Continue ICU support The critical care physician has discussed goals of care with the family Pt appears to be acutely hypercapnic and not tolerating BiPAP well Prognosis is extremely poor patient had changed goals of care
[2017-04-17 16:43] LABS: ABG HCO3 23 mmol/L (21-25); ABG PCO2 57 mmHg (35-45); ABG PH 7.23 (7.35-7.45); ABG PO2 111 mmHg (83-108)
[2017-04-17 16:44] LABS: ABG Base Excess -3.6 mmol/L; ABG Oxygen Saturation 97.2 % (94-97); ABG TCO2 25 mmol/L (19-24)
--- NOTE | 2017-04-17 18:22 | PN ---
Patient is seen for followup for acute kidney injury. Overnight it appears that his blood pressure was low ( ) blood pressure of 70s for systolic. This morning it was down to 50s and patient was transferred to the ICU. He was initially maintained on Levophed at about 80 mcg. He was eventually intubated and he has had no urine output since he was transferred to the ICU. Patient's potassium was also elevated at 6.5 mEq/L. He has received Kayexalate as far as IV treatment for the hyperkalemia. Patient's family is present at bedside, and I have discussed with them regarding possible need for renal replacement therapy if renal function does not improve. Patient did receive 1 dose of hydrocortisone. Random cortisol was drawn; however, it was 88. Levophed is now down to about 30 mcg. There is no active bleeding noted. No fever. No chills. On examination currently, patient is sedated. He is on the vent. Blood pressure about 118 mmHg. Art line shows 98/54. Heart rate 101 per minute. Patient is afebrile. EXAMINATION OF THE HEART: S1 and S2. EXAMINATION OF LUNGS: Bilateral breath sounds are heard. Abdomen is soft, distended. Examination of lower extremities shows chronic skin changes with edema 1+ bilaterally and some wrinkling of the skin noted in the lower extremities. Labs show sodium of 146, potassium 6.5; BUN 113, serum creatinine 4.06. ASSESSMENT: 1. Acute kidney injury, acute tubular necrosis, currently oliguric secondary to hypotension, hypoperfusion. 2. Hyperkalemia associated with acute kidney injury. If urine output does not improve, patient may need dialysis tomorrow; however, patient's family will discuss among themselves regarding that decision. 3. Cardiomyopathy; ejection fraction of 35%. 4. Mild rhabdomyolysis on initial admission. 5. Obstructive sleep apnea. PLAN: Continue to wean down the pressors. Will try high-dose Lasix later on today, once the blood pressure is better. If the serum potassium remains elevated, we will need to proceed with renal replacement therapy if family decides for it. MTDD
[2017-04-17] MEDS: PANTOPRAZOLE 40 MG/10 ML VIAL IVP SCH (20:25)
[2017-04-17] MEDS: CHLORHEXIDINE GLUCONATE 15 ML CUP MUCOUS MEM SCH (20:25)
--- NOTE | 2017-04-17 22:57 | PN ---
Mr. Mcelroy became worse clinically. He developed more shortness of breath, had significant pleural effusion. He has been NO CODE, but apparently changed his mind and wanted to be intubated. BiPAP was placed, but clinically he is getting worse. He may need to be intubated. Vital signs so far are stable hemodynamically. S1, S2 heard normally. Lungs reveal diminished air entry on both sides, more so on the left. Abdomen and lower extremity exam unchanged. Prognosis remains poor for this patient. From a cardiac standpoint, I have no new specific intervention. He is being closely followed by document preparation specialist Dr. Anne and Nephrology. Prognosis remains guarded. MTDD
[2017-04-18] MEDS: HEPARIN SODIUM,PORCINE 5,000 UNIT/ML 1 ML VIAL SQ SCH ×3 (00:31→15:14)
[2017-04-18] MEDS: PROPOFOL 500 MG in EMPTY BAG 1 BAG IV SCH ×8 (01:50→22:14)
[2017-04-18] MEDS: NOREPINEPHRIN 16 MG-0.9%NS PMX 16 MG/250 ML ML IV SCH ×2 (03:20→14:40)
[2017-04-18 05:14] LABS: ABG Base Excess -0.1 mmol/L; ABG HCO3 24 mmol/L (21-25); ABG PCO2 40 mmHg (35-45); ABG PO2 70 mmHg (83-108); ABG TCO2 25 mmol/L (19-24)
[2017-04-18 05:17] LABS: Calcium 8.8 mg/dL (8.4-10.2); Magnesium 2.1 mg/dL (1.6-2.3); Phosphorous 5.5 mg/dL (2.5-4.5); Potassium 4.7 mmol/L (3.5-5.1)
[2017-04-18 05:33] LABS: Basophils % (A) 0 %; CHCM 30.5; Eosinophils # (A) 0.1 k/uL (0-0.7); Eosinophils % (A) 0 %; HCT 39.6 % (39.0-53.0); HDW 2.74; HGB 12.5 gm/dL (13.0-17.5); Hypochromasia Moderate; Large Platelets Flag Slight; Luc # (Auto) 0.13; Luc % (Auto) 1; Lymphocytes # (A) 0.5 k/uL (1.0-4.8); Lymphocytes % (A) 3 %; MCH 32.3 pg (25.0-35.0); MCHC 31.6 g/dL (31.0-37.0); MCV 101.9 fL (80.0-100.0); Macrocytosis Slight; Mean Platelet Volume 11.5; Monocytes # (A) 0.4 k/uL (0-1.0); Monocytes % (A) 2 %; Neutrophils # (A) 16.9 k/uL (1.3-7.7); Neutrophils % (A) 94 %; RBC 3.89 m/uL (4.30-5.90); RDW 15.5 % (11.5-15.5); WBC 18.1 k/uL (3.8-10.6); WBC (Perox) 18.84
[2017-04-18] MEDS: IPRATROPIUM-ALBUTEROL 3 ML NEB INHALATION SCH ×4 (07:24→19:13)
--- NOTE | 2017-04-18 08:11 | XR ---
EXAMINATION TYPE: XR chest 1V portable DATE OF EXAM: 04/18/2017 COMPARISON: Prior chest x-ray 04/17/2017 HISTORY: Intubated TECHNIQUE: Single frontal view of the chest is obtained. FINDINGS: Endotracheal tube and NG tube are stable overlying appropriate positions. Lung volumes are low and the patient is rotated. Heart size is accentuated. Interstitium is prominent. No evident pne umothorax. Retrocardiac density persists. There are overlying cardiac leads. IMPRESSION: Similar findings, expiratory rotated exam. There may be left lower lobe atelectasis vers us pneumonia and associated effusion, follow-up to resolution. Cannot exclude a component of volume o verload, pulmonary venous hypertension and interstitial edema.
[2017-04-18] MEDS: PANTOPRAZOLE 40 MG/10 ML VIAL IVP SCH (09:20)
[2017-04-18] MEDS: CHLORHEXIDINE GLUCONATE 15 ML CUP MUCOUS MEM SCH ×2 (09:20→20:31)
--- NOTE | 2017-04-18 10:03 | P.PN ---
Subjective Principal diagnosis: Acute hypoxic respiratory failure This is an 82-year-old gentleman who was admitted with shortness of breath and hypoxemia secondary to congestive heart failure. The patient also has acute renal failure. He was seen and evaluated yesterday by Dr. Anne the patient was placed on BiPAP at 10/5 and 50%. He was doing fairly well throughout the evening until early this morning he developed worsening shortness of breath and required FiO2 to be increased to 100% to maintain O2 saturations in the 90s. Subsequently an a team was called and he was transferred to the intensive care unit where he is seen again today in follow-up. He is currently alert and arousable. He did become quite hypotensive and is currently on norepinephrine at 50 mcg/m. He was also found to be hyperkalemic with an potassium level of 6.5 and worsening renal failure current creatinine 4.06. Nephrology is on the case as well. Kayexalate has been ordered. The plan is for Lasix once his blood pressure recovers. Arterial blood gases on 100% FiO2 revealed a PaO2 of 71, pCO2 of 87 and pH of 7.11. Today's chest x-ray shows increasing moderate to large left pleural effusion with adjacent atelectasis/consolidation. There is a trace right pleural effusion. The patient is seen again today 04/18/2017 in follow-up in the intensive care unit. He did go on to progressively worsen as far as his respiratory status was concerned and ended up being intubated and placed on the mechanical ventilator. He is currently on assist control mode at 28, tidal volume 450, FiO2 60% and a PEEP of 5. Current blood gases reveal a P O2 of 70 pCO2 of 40, pH 7.40. Remains sedated on propofol at 10 mcg/kg/m, norepinephrine at 22 mcg/ m and a .9 normal saline at 20 mL per hour. Chest x-ray does show slight improvement in the left pleural effusion possibly secondary to positive pressure ventilation. His urine output did turkey picker. His creatinine is 3.99 with a BUN of 117, WBC 18.1, hemoglobin 12.5. He was given a daily interruption of sedation and was quite weak but alert and following simple commands. Objective - Vital Signs Vital signs: Vital Signs Temp 100.7 F H 04/18/17 08:00 Pulse 109 H 04/18/17 09:00 Resp 33 H 04/18/17 09:00 BP 123/59 04/18/17 09:00 Pulse Ox 93 L 04/18/17 09:00 Intake & Output 04/17/17 04/18/17 04/18/17 18:59 06:59 18:59 Intake Total 1306.347 752.651 151.826 Output Total 317 825 145 Balance 989.347 -72.349 6.826 Weight 122.2 kg 122.2 kg Intake: IV 933 243 60 0,9 normal saline bolus 500 0.9 180 240 60 0.9 for pressure 18 3 Calcium Gluconate 1,000 100 mg In Sodium Chloride 0.9 % 100 ml @ 100 mls/hr IVPB ONCE ONE Rx#: [id number] Dextrose 10 % in Water 125 125 ml @ 500 mls/hr IV ONCE STA Rx#:[id number] Invasive Line 5 10 Intake, IV Titration 373.347 509.651 91.826 Amount Norepinephrin 16 mg-0.9% 292.500 251.174 60.938 Ns Pmx 16 mg In 250 ml @ Titrate IV .Q0M [facility] Rx#: [id number] Propofol 500 mg In Empty 80.847 258.477 30.888 Bag 1 bag @ Titrate IV . Q0M [facility] Rx#:[id number] Oral 0 Output: Gastric Drainage 300 300 Urine 17 525 145 Other: Voiding Method Indwelling Catheter Indwelling Catheter Indwelling Catheter # Voids 0 # Bowel Movements 0 0 ABP, PAP, CO, CI - Last Documented Arterial Blood Pressure 97/52 - Exam GENERAL EXAM: Sedated, intubated. HEAD: Normocephalic. EYES: reaction of pupils, equal size. NOSE: Clear with pink turbinates. THROAT: No erythema or exudates. Scarring of question of previous trach. NECK: No masses, no JVD. CHEST: No chest wall deformity. LUNGS: Equal air entry with crackles in the posterior bases more so on the left diminished greater on the left. CVS: S1 and S2 normal with audible murmur, regular rhythm. ABDOMEN: No hepatosplenomegaly, normal bowel sounds, no guarding or rigidity. Extremities: There is 1-2+ lower extremity peripheral edema. No clubbing, no cyanosis. Faint peripheral pulses are intact. - Labs CBC & Chem 7: 04/18/17 05:00 04/18/17 05:00 Labs: Abnormal Lab Results - Last 24 Hours (Table) 04/17/17 04/17/17 04/17/17 Range/Units 10:40 11:00 12:15 WBC (3.8-10.6) k/uL RBC (4.30-5.90) m/uL Hgb (13.0-17.5) gm/dL MCV (80.0-100.0) fL Plt Count (150-450) k/uL Neutrophils # (1.3-7.7) k/uL Lymphocytes # (1.0-4.8) k/uL ABG pH 7.11 L* 7.12 L* (7.35-7.45) ABG pCO2 87 H* 81 H* (35-45) mmHg ABG pO2 71 L 68 L (83-108) mmHg ABG HCO3 26 H (21-25) mmol/L ABG Total CO2 29 H 28 H (19-24) mmol/L ABG O2 Saturation 85.6 L 84.9 L (94-97) % ABG Lactic Acid 2.3 H* (0.5-1.6) mmol/L Potassium (3.5-5.1) mmol/L BUN (9-20) mg/dL Creatinine (0.66-1.25) mg/dL Glucose (74-99) mg/dL POC Glucose (mg/dL) (75-99) mg/dL Phosphorus (2.5-4.5) mg/dL 04/17/17 04/17/17 04/17/17 Range/Units 12:36 12:56 14:00 WBC (3.8-10.6) k/uL RBC (4.30-5.90) m/uL Hgb (13.0-17.5) gm/dL MCV (80.0-100.0) fL Plt Count (150-450) k/uL Neutrophils # (1.3-7.7) k/uL Lymphocytes # (1.0-4.8) k/uL ABG pH 7.14 L* (7.35-7.45) ABG pCO2 74 H* (35-45) mmHg ABG pO2 59 L (83-108) mmHg ABG HCO3 (21-25) mmol/L ABG Total CO2 26 H (19-24) mmol/L ABG O2 Saturation 80.0 L (94-97) % ABG Lactic Acid (0.5-1.6) mmol/L Potassium 5.8 H (3.5-5.1) mmol/L BUN (9-20) mg/dL Creatinine (0.66-1.25) mg/dL Glucose (74-99) mg/dL POC Glucose (mg/dL) 124 H (75-99) mg/dL Phosphorus (2.5-4.5) mg/dL 04/17/17 04/17/17 04/18/17 Range/Units 16:05 20:00 04:54 WBC (3.8-10.6) k/uL RBC (4.30-5.90) m/uL Hgb (13.0-17.5) gm/dL MCV (80.0-100.0) fL Plt Count (150-450) k/uL Neutrophils # (1.3-7.7) k/uL Lymphocytes # (1.0-4.8) k/uL ABG pH 7.23 L (7.35-7.45) ABG pCO2 57 H (35-45) mmHg ABG pO2 111 H 70 L (83-108) mmHg ABG HCO3 (21-25) mmol/L ABG Total CO2 25 H 25 H (19-24) mmol/L ABG O2 Saturation 97.2 H (94-97) % ABG Lactic Acid (0.5-1.6) mmol/L Potassium 5.3 H (3.5-5.1) mmol/L BUN (9-20) mg/dL Creatinine (0.66-1.25) mg/dL Glucose (74-99) mg/dL POC Glucose (mg/dL) (75-99) mg/dL Phosphorus (2.5-4.5) mg/dL 04/18/17 04/18/17 Range/Units 05:00 05:00 WBC 18.1 H (3.8-10.6) k/uL RBC 3.89 L (4.30-5.90) m/uL Hgb 12.5 L (13.0-17.5) gm/dL MCV 101.9 H (80.0-100.0) fL Plt Count 124 L (150-450) k/uL Neutrophils # 16.9 H (1.3-7.7) k/uL Lymphocytes # 0.5 L (1.0-4.8) k/uL ABG pH (7.35-7.45) ABG pCO2 (35-45) mmHg ABG pO2 (83-108) mmHg ABG HCO3 (21-25) mmol/L ABG Total CO2 (19-24) mmol/L ABG O2 Saturation (94-97) % ABG Lactic Acid (0.5-1.6) mmol/L Potassium (3.5-5.1) mmol/L BUN 117 H* (9-20) mg/dL Creatinine 3.99 H (0.66-1.25) mg/dL Glucose 138 H (74-99) mg/dL POC Glucose (mg/dL) (75-99) mg/dL Phosphorus 5.5 H (2.5-4.5) mg/dL Microbiology - Last 24 Hours (Table) 04/17/17 14:35 Sputum Culture - Preliminary Sputum Assessment and Plan Plan: Impression: #1 Acute hypoxic respiratory failure secondary to worsening acute on chronic systolic congestive heart failure. Requiring intubation and mechanical ventilatory support on 04/17/2017. #2 Acute exacerbation of systolic congestive heart failure. Ejection fraction between 35 and 40%. #3 Moderate to large left pleural effusion. #4 Paroxysmal atrial fibrillation. #5 Acute renal failure, creatinine 4.06. #6 Hyperkalemia secondary to renal failure, improved #7 History of coronary artery disease. #8 History of chronic obstructive pulmonary disease. #9 Hypertension, history of. #10 Hyperlipidemia. #11 History of gout. Plan: The patient was seen and evaluated by Dr. Anne. His chest x-ray, ABGs and labs were reviewed. We'll continue with his current vent settings. We'll repeat the chest x-ray and ABGs in the a.m. No plans for extubation today. We will initiate dietary consultation for recommendations of tube feedings. We'll obtain blood cultures and urine cultures. We'll continue to wean down the norepinephrine and give him another one to one and a half liters of fluids. His hyperkalemia was corrected. We may consider a thoracentesis of the left pleural effusion once the patient stabilizes. In the interim we'll continue with bronchodilators. We will continue to follow. Critical care time 35 minutes not including procedures. Time with Patient: Greater than 30
[2017-04-18] MEDS ORDERED: SODIUM CHLORIDE 0.9% 1,000 ML IV ONE (10:05)
--- NOTE | 2017-04-18 10:29 | PCN ---
PROCEDURES: 1. Right femoral arterial line. 2. Right femoral triple lumen catheter. Indication: Hemodynamic monitoring. A time out was completed verifying correct patient, procedure site, positioning , and implant(s) or special equipment if applicable. Maurilio's test was performed to ensure adequate perfusion. The patient's right groin was prepped and draped in sterile fashion. 1% Lidocaine was used to anesthetize the area. An 18G Arrow arterial line was introduced into the femoral artery. The catheter was threaded over the guide wire and the needle was removed with appropriate pulsatile blood return. Blood loss was minimal. The catheter was then sutured in place to the skin and a sterile dressing applied. Perfusion to the extremity distal to the point of catheter insertion was checked and found to be adequate. There were no immediate complications. The catheters were sutured in place. Sterile dressings were applied by the nurse. There was good blood return from all three ports of triple lumen catheter and there was good waveform from the Art line. No immediate complications. The reason for the triple lumen is administration of fluids and pressures. The reason for the arterial line is frequent blood draws and blood gas monitoring. Again, no complications. Sterile dressings were applied by the nurse. The patient tolerated the procedure well. MITALID
[2017-04-18 11:01] VITALS: BMI 38.6
[2017-04-18] MEDS: ACETAMINOPHEN TAB 325 MG TAB PO PRN (14:08)
--- NOTE | 2017-04-18 16:36 | P.PN ---
Subjective This is a 82-year-old gentleman with history of objective sleep apnea obesity hypertension previous history of tobacco use comes in to the hospital with complains of difficulty breathing and falls for the last 7 days Patient states that the he normally uses 3-4 L of supplemental oxygen has history of obstructive sleep apnea and uses the CPAP at night Patient apparently has been hypoxic on his basal count of oxygen and has been extremely weak. Patient does not have any history of congestive heart failure/ any history of CAD In the emergency room chest x-ray showed some concerns for mild cephalization. A BNP was elevated to 15,000 Renal dysfunction was noted At the time of my evaluation patient states that he feels slightly improved from admission No headaches blurry vision chest pain abdominal pain urinary urgency or frequency or lower extremity edema is reported no weight gain is reported no orthopnea or PND is reported apnea PND is reported Fabiano 04/13 2017 Patient states that the she is feeling slightly better is on 10 L of supplemental oxygen Denies having any headaches blurry vision nausea vomiting diarrhea 04/14/2017 Patient denies having any chest pain difficulty in breathing nausea vomiting States that his breathing is improved from previous days No diarrhea is reported 04/15/2017 Patient is doing better No fevers chills nausea vomiting diarrhea reported Since his breathing is significantly improved 04/16/2017 Patient's CPAP apparently stopped abruptly working overnight Has had an episode of significant respiratory distress this morning Had to be started on BiPAP at 10 over 5 at 50% FiO2 Patient is awake is able to answer questions states to be feeling okay denies having any chest pain headaches blurry vision diarrhea 04/17/2017 Patient is clinically worsen or night has not been tolerating BiPAP or graft patient previously has stated that he would like to be DO NOT RESUSCITATE and no aggressive measures including hemodialysis at one point However has change his mind and stated that he would want endotracheal intubation and support Discussed the case with pulmonary palliative care specialist as well. Family to agree those with the previous recommendations however they would like to attempt a short duration of nonsupport During the time of my evaluation patient is not arousable 04/18/2017 Patient is intubated and sedated A significant decrease in need for vasopressor support However continues to be on vasopressor support a significant amount of support on the ventilator Objective - Vital Signs Vital signs: Vital Signs Temp 100.4 F H 04/18/17 12:00 Pulse 97 04/18/17 15:41 Resp 27 H 04/18/17 15:00 BP 109/53 04/18/17 14:30 Pulse Ox 92 L 04/18/17 15:00 Intake & Output 04/17/17 04/18/17 04/18/17 18:59 06:59 18:59 Intake Total 1306.347 650.410 8434.843 Output Total 317 825 555 Balance 989.347 -72.349 838.843 Weight 122.2 kg 123.5 kg Intake: IV 970 189 4430 0,9 normal saline bolus 500 1000 0.9 180 240 160 0.9 for pressure 18 3 Calcium Gluconate 1,000 100 mg In Sodium Chloride 0.9 % 100 ml @ 100 mls/hr IVPB ONCE ONE Rx#: [id number] Dextrose 10 % in Water 125 125 ml @ 500 mls/hr IV ONCE STA Rx#:[id number] Invasive Line 5 10 Intake, IV Titration 373.347 509.651 233.843 Amount Norepinephrin 16 mg-0.9% 292.500 251.174 163.719 Ns Pmx 16 mg In 250 ml @ Titrate IV .Q0M [facility] Rx#: [id number] Propofol 500 mg In Empty 80.847 258.477 70.124 Bag 1 bag @ Titrate IV . Q0M [facility] Rx#:[id number] Oral 0 Output: Gastric Drainage 300 300 Urine 17 525 555 Other: Voiding Method Indwelling Catheter Indwelling Catheter Indwelling Catheter # Voids 0 # Bowel Movements 0 0 ABP, PAP, CO, CI - Last Documented Arterial Blood Pressure 99/56 - Exam Gen. appearance not arousable. Intubated and sedated Lungs diminished breath sounds, significant crackles or rhonchi appreciated today Heart S1-S2 heard regular rate and rhythm no murmurs appreciated Abdomen is soft nontender no organomegaly however large/obese Lower extremities trace edema chronic skin changes Neuro deferred - Labs CBC & Chem 7: 04/18/17 05:00 04/18/17 05:00 Labs: Abnormal Lab Results - Last 24 Hours (Table) 04/17/17 04/17/17 04/18/17 Range/Units 16:05 20:00 04:54 WBC (3.8-10.6) k/uL RBC (4.30-5.90) m/uL Hgb (13.0-17.5) gm/dL MCV (80.0-100.0) fL Plt Count (150-450) k/uL Neutrophils # (1.3-7.7) k/uL Lymphocytes # (1.0-4.8) k/uL ABG pH 7.23 L (7.35-7.45) ABG pCO2 57 H (35-45) mmHg ABG pO2 111 H 70 L (83-108) mmHg ABG Total CO2 25 H 25 H (19-24) mmol/L ABG O2 Saturation 97.2 H (94-97) % Potassium 5.3 H (3.5-5.1) mmol/L BUN (9-20) mg/dL Creatinine (0.66-1.25) mg/dL Glucose (74-99) mg/dL Phosphorus (2.5-4.5) mg/dL 04/18/17 04/18/17 Range/Units 05:00 05:00 WBC 18.1 H (3.8-10.6) k/uL RBC 3.89 L (4.30-5.90) m/uL Hgb 12.5 L (13.0-17.5) gm/dL MCV 101.9 H (80.0-100.0) fL Plt Count 124 L (150-450) k/uL Neutrophils # 16.9 H (1.3-7.7) k/uL Lymphocytes # 0.5 L (1.0-4.8) k/uL ABG pH (7.35-7.45) ABG pCO2 (35-45) mmHg ABG pO2 (83-108) mmHg ABG Total CO2 (19-24) mmol/L ABG O2 Saturation (94-97) % Potassium (3.5-5.1) mmol/L BUN 117 H* (9-20) mg/dL Creatinine 3.99 H (0.66-1.25) mg/dL Glucose 138 H (74-99) mg/dL Phosphorus 5.5 H (2.5-4.5) mg/dL Microbiology - Last 24 Hours (Table) 04/18/17 10:10 Urine Culture - Preliminary Urine,Catheterized 04/17/17 14:35 Sputum Culture - Preliminary Sputum Assessment and Plan Plan: Difficulty in breathing this is likely due to an acute exacerbation of systolic heart failure Shock likely combined distributive and cardiogenic Mild to moderate pulmonary hypertension Objective sleep apnea Acute on chronic hypoxic and hypercapnic respiratory failure Acute kidney injury likely prerenal due to pump failure History of hypertension Dyslipidemia Obesity Acute non-Q-wave GA Plan Continue vasopressor support continue full ICU supportive Critical care physician has discussed goals of care with the family per graph patient is on a significant amount of support on the ventilator ABGs are noted Continue ongoing care urine output is improved Continue monitoring renal function
--- NOTE | 2017-04-18 16:40 | PN ---
This is a gentleman with acute renal failure, congestive heart failure, has worsening respiratory status, he has been intubated, has also pleural effusion. The patients overall prognosis remains quite poor. He is on a lot of Levophed. I would recommend that we make him comfort care. S1, S2 heard normally. Lungs reveal diminished air entry both lung marshall. Abdomen and lower extremity exam is unchanged. Prognosis remains poor. I am recommending that he should be on comfort care. VICK
[2017-04-18] MEDS: ASPIRIN 325 MG TAB PO SCH (20:31)
[2017-04-18 20:48] LABS: Glucose,Whole Blood 129 mg/dL (75-99)
[2017-04-18 21:26] LABS: Calcium 8.6 mg/dL (8.4-10.2); Potassium 3.8 mmol/L (3.5-5.1); Total Bilirubin 1.2 mg/dL (0.2-1.3); Total Protein 5.2 g/dL (6.3-8.2)
[2017-04-18] MEDS ORDERED: Potassium Replacement Protocol 1 EACH MISC MISCELLANE PRN (21:44)
[2017-04-18] MEDS ORDERED: POTASSIUM CHLORIDE ORAL LIQUID 40 MEQ/30 ML CUP NG-TUBE SCH (22:00)
[2017-04-19] MEDS ORDERED: IV VANCOMYCIN PER PHARMACY 1 EACH MISC MISCELLANE PRN (00:34)
[2017-04-19 00:43] LABS: Glucose,Whole Blood 129 mg/dL (75-99)
[2017-04-19] MEDS ORDERED: VANCOMYCIN 2,000 MG in SODIUM CHLORIDE 0.9% 500 ML IVPB ONE (01:00)
[2017-04-19] MEDS: HEPARIN SODIUM,PORCINE 5,000 UNIT/ML 1 ML VIAL SQ SCH ×2 (01:15→11:09)
[2017-04-19] MEDS: PROPOFOL 500 MG in EMPTY BAG 1 BAG IV SCH ×5 (01:15→14:42)
[2017-04-19 04:43] LABS: ABG PCO2 38 mmHg (35-45); ABG PH 7.42 (7.35-7.45); ABG PO2 67 mmHg (83-108)
[2017-04-19 04:44] LABS: ABG Base Excess 0.2 mmol/L; ABG HCO3 24 mmol/L (21-25); ABG TCO2 25 mmol/L (19-24)
[2017-04-19 05:01] LABS: Basophils # (A) 0.1 k/uL (0-0.2); Basophils % (A) 0 %; CH 31.3; CHCM 31.4; Eosinophils # (A) 0.2 k/uL (0-0.7); Eosinophils % (A) 1 %; HCT 38.1 % (39.0-53.0); HDW 2.72; HGB 12.5 gm/dL (13.0-17.5); Hypochromasia Slight; Large Platelets Flag Moderate; Luc # (Auto) 0.08; Luc % (Auto) 0; Lymphocytes # (A) 0.3 k/uL (1.0-4.8); Lymphocytes % (A) 2 %; MCH 32.9 pg (25.0-35.0); MCHC 32.8 g/dL (31.0-37.0); MCV 100.2 fL (80.0-100.0); Macrocytosis Slight; Mean Platelet Volume 11.9; Monocytes # (A) 0.4 k/uL (0-1.0); Monocytes % (A) 2 %; Neutrophils # (A) 17.4 k/uL (1.3-7.7); Neutrophils % (A) 95 %; RDW 15.9 % (11.5-15.5); WBC 18.4 k/uL (3.8-10.6); WBC (Perox) 17.98
[2017-04-19 05:15] LABS: Calcium 8.8 mg/dL (8.4-10.2); Phosphorous 3.8 mg/dL (2.5-4.5); Potassium 3.7 mmol/L (3.5-5.1)
[2017-04-19 05:23] LABS: Manual Review Performed
[2017-04-19] MEDS ORDERED: DEXTROSE 5% IN WATER 1,000 ML IV ONE (07:13)
[2017-04-19] MEDS ORDERED: POTASSIUM CHLORIDE ORAL LIQUID 40 MEQ/30 ML CUP PO ONE (07:14)
[2017-04-19] MEDS: IPRATROPIUM-ALBUTEROL 3 ML NEB INHALATION SCH ×3 (07:23→15:39)
--- NOTE | 2017-04-19 08:12 | XR ---
EXAMINATION TYPE: XR chest 1V portable DATE OF EXAM: 04/19/2017 Comparison: 04/18/2017 Clinical History: 82-year-old male Tube placement Findings: ET tube and NG tube satisfactory. Heart remains mildly enlarged and there continues to be diffuse int erstitial and vascular prominence. Dense retrocardiac opacity and a distended additional left basilar opacity. This shows minimal interval improvement. Possible trace right effusion. Impression: 1. Small left pleural effusion with adjacent atelectasis and/or consolidation, appears slightly impro jaguar. 2. Otherwise, continued findings suggestive of CHF with pulmonary vascular congestion/interstitial ed manoj.
[2017-04-19 08:42] VITALS: TEMP 100.7
[2017-04-19] MEDS: CHLORHEXIDINE GLUCONATE 15 ML CUP MUCOUS MEM SCH (08:44)
[2017-04-19] MEDS: PANTOPRAZOLE 40 MG/10 ML VIAL IVP SCH (08:45)
[2017-04-19] MEDS ORDERED: CISATRACURIUM 2 MG/ML 5 ML VIAL IV ONE (09:12)
[2017-04-19] MEDS: MAGNESIUM SULFATE-D5W PMX 1 GM in DEXTROSE/WATER 1 100ML.BAG IVPB SCH ×2 (10:04→11:09)
--- NOTE | 2017-04-19 10:09 | XR ---
EXAMINATION TYPE: XR chest 1V confirm line [facility] DATE OF EXAM: 04/19/2017 COMPARISON: 04/19/2017 HISTORY: 82-year-old male Central line placement TECHNIQUE: Single frontal view of the chest is obtained. FINDINGS: ET tube and NG tube remain in place. Left IJ CVC tip in the right atrium. The heart remains mildly en larged with diffuse interstitial and vascular prominence and retrocardiac and left basilar opacity. IMPRESSION: 1. Left IJ CVC tip in the right atrium. 2. Otherwise, stable findings, possible CHF with pulmonary vascular congestion/interstitial edema. Sm all left effusion with prominent left basilar atelectasis and/or consolidation.
--- NOTE | 2017-04-19 10:09 | P.PN ---
Subjective Principal diagnosis: Acute hypoxic respiratory failure This is an 82-year-old gentleman who was admitted with shortness of breath and hypoxemia secondary to congestive heart failure. The patient also has acute renal failure. He was seen and evaluated yesterday by Dr. Anne the patient was placed on BiPAP at 10/5 and 50%. He was doing fairly well throughout the evening until early this morning he developed worsening shortness of breath and required FiO2 to be increased to 100% to maintain O2 saturations in the 90s. Subsequently an a team was called and he was transferred to the intensive care unit where he is seen again today in follow-up. He is currently alert and arousable. He did become quite hypotensive and is currently on norepinephrine at 50 mcg/m. He was also found to be hyperkalemic with an potassium level of 6.5 and worsening renal failure current creatinine 4.06. Nephrology is on the case as well. Kayexalate has been ordered. The plan is for Lasix once his blood pressure recovers. Arterial blood gases on 100% FiO2 revealed a PaO2 of 71, pCO2 of 87 and pH of 7.11. Today's chest x-ray shows increasing moderate to large left pleural effusion with adjacent atelectasis/consolidation. There is a trace right pleural effusion. The patient is seen again today 04/18/2017 in follow-up in the intensive care unit. He did go on to progressively worsen as far as his respiratory status was concerned and ended up being intubated and placed on the mechanical ventilator. He is currently on assist control mode at 28, tidal volume 450, FiO2 60% and a PEEP of 5. Current blood gases reveal a P O2 of 70 pCO2 of 40, pH 7.40. Remains sedated on propofol at 10 mcg/kg/m, norepinephrine at 22 mcg/ m and a .9 normal saline at 20 mL per hour. Chest x-ray does show slight improvement in the left pleural effusion possibly secondary to positive pressure ventilation. His urine output did pickling solution maker. His creatinine is 3.99 with a BUN of 117, WBC 18.1, hemoglobin 12.5. He was given a daily interruption of sedation and was quite weak but alert and following simple commands. The patient is seen again today. 04/19/2017 in follow-up in the intensive care unit. He remains intubated and on the mechanical ventilator. Current settings assist control of 28, tidal volume 450, FiO2 60% and a PEEP of 5. Morning blood gases reveal a P O2 of 67, pCO2 38 and a pH of 7.42. Current IV medications are D5W at 20 miles per hour, norepinephrine 18 mcg/m, propofol at 30 mcg/kg/m. He is receiving tube feedings in the form of Vital HP at 30 MLS per hour with a goal of 40 mls per hour. We are continuing to conduct daily interruption of sedation and weaning trials. His chest x-ray continues to show consolidation in the left lung base with slight improvement today as compared to yesterday. His blood cultures are positive for gram-positive cocci and clusters and he has been initiated on vancomycin. His sodium is 148 and he is receiving free water as well. Current temp 100.7. WBC 18.4, hemoglobin 12.5, sodium 148, BUN 103 and a creatinine of 2.50. Objective - Vital Signs Vital signs: Vital Signs Temp 100.7 F H 04/19/17 08:00 Pulse 103 H 04/19/17 08:00 Resp 27 H 04/19/17 08:00 BP 90/49 04/19/17 08:00 Pulse Ox 99 04/19/17 08:00 Intake & Output 04/18/17 04/19/17 04/19/17 18:59 06:59 18:59 Intake Total 1773.392 1761.181 319.146 Output Total 855 1590 195 Balance 748.837 -94.819 124.146 Weight 123.5 kg 120.5 kg Intake: IV 1229 776 46 0,9 normal saline bolus 1000 0.9 220 240 20 0.9 for pressure 9 36 6 Dextrose 5% in Water 1, 20 000 ml @ 20 mls/hr IV . Q24H ONE Rx#:[id number] Vancomycin 2,000 mg In 500 Sodium Chloride 0.9% 500 ml @ 167 mls/hr IVPB ONCE ONE Rx#:[id number] Intake, IV Titration 344.837 349.181 123.146 Amount Norepinephrin 16 mg-0.9% 237.875 107.628 68.216 Ns Pmx 16 mg In 250 ml @ Titrate IV .Q0M [facility]S [facility]CLUDE 234 BEDS AT THE [facility] Rx#: [id number] Propofol 50 ml As IV .STK 21 -MED ONE Rx#:[id number] Propofol 500 mg In Empty 106.962 241.553 33.93 Bag 1 bag @ Titrate IV . Q0M COUNTS INCLUDE 234 BEDS AT THE [facility] Rx#:[id number] Oral 0 Tube Feeding 30 260 50 Other 110 100 Output: Urine 855 1590 195 Other: Voiding Method Indwelling Catheter Indwelling Catheter # Voids 0 # Bowel Movements 0 0 ABP, PAP, CO, CI - Last Documented Arterial Blood Pressure 92/52 - Exam GENERAL EXAM: Sedated, intubated. HEAD: Normocephalic. EYES: reaction of pupils, equal size. NOSE: Clear with pink turbinates. THROAT: No erythema or exudates. Scarring of question of previous trach. NECK: No masses, no JVD. CHEST: No chest wall deformity. LUNGS: Equal air entry with crackles in the posterior bases more so on the left diminished greater on the left. CVS: S1 and S2 normal with audible murmur, regular rhythm. ABDOMEN: No hepatosplenomegaly, normal bowel sounds, no guarding or rigidity. Extremities: There is 1-2+ lower extremity peripheral edema. No clubbing, no cyanosis. Faint peripheral pulses are intact. - Labs CBC & Chem 7: 04/19/17 04:30 04/19/17 04:30 Labs: Abnormal Lab Results - Last 24 Hours (Table) 04/18/17 04/18/17 04/19/17 Range/Units 20:45 20:46 00:41 WBC (3.8-10.6) k/uL RBC (4.30-5.90) m/uL Hgb (13.0-17.5) gm/dL Hct (39.0-53.0) % MCV (80.0-100.0) fL RDW (11.5-15.5) % Plt Count (150-450) k/uL Neutrophils # (1.3-7.7) k/uL Lymphocytes # (1.0-4.8) k/uL ABG pO2 (83-108) mmHg ABG Total CO2 (19-24) mmol/L ABG O2 Saturation (94-97) % Sodium 147 H (137-145) mmol/L Chloride (98-107) mmol/L BUN 109 H* (9-20) mg/dL Creatinine 3.10 H (0.66-1.25) mg/dL Glucose 132 H (74-99) mg/dL POC Glucose (mg/dL) 129 H 129 H (75-99) mg/dL ALT 80 H (21-72) U/L Total Protein 5.2 L (6.3-8.2) g/dL Albumin 2.7 L (3.5-5.0) g/dL 04/19/17 04/19/17 04/19/17 Range/Units 04:30 04:30 04:34 WBC 18.4 H (3.8-10.6) k/uL RBC 3.80 L (4.30-5.90) m/uL Hgb 12.5 L (13.0-17.5) gm/dL Hct 38.1 L (39.0-53.0) % MCV 100.2 H (80.0-100.0) fL RDW 15.9 H (11.5-15.5) % Plt Count 97 L (150-450) k/uL Neutrophils # 17.4 H (1.3-7.7) k/uL Lymphocytes # 0.3 L (1.0-4.8) k/uL ABG pO2 67 L (83-108) mmHg ABG Total CO2 25 H (19-24) mmol/L ABG O2 Saturation 93.0 L (94-97) % Sodium 148 H (137-145) mmol/L Chloride 110 H (98-107) mmol/L BUN 103 H* (9-20) mg/dL Creatinine 2.50 H (0.66-1.25) mg/dL Glucose 142 H (74-99) mg/dL POC Glucose (mg/dL) (75-99) mg/dL ALT (21-72) U/L Total Protein (6.3-8.2) g/dL Albumin (3.5-5.0) g/dL Microbiology - Last 24 Hours (Table) 04/18/17 10:10 Blood Culture Gram Stain - Preliminary Blood 04/18/17 10:10 Blood Culture - Final Blood 04/18/17 11:00 Blood Culture Gram Stain - Preliminary Blood 04/18/17 11:00 Blood Culture - Final Blood 04/18/17 10:10 Urine Culture - Preliminary Urine,Catheterized Assessment and Plan Plan: Impression: #1 Acute hypoxic respiratory failure secondary to worsening acute on chronic systolic congestive heart failure. Requiring intubation and mechanical ventilatory support on 04/17/2017. #2 Acute exacerbation of systolic congestive heart failure. Ejection fraction between 35 and 40%. #3 Moderate to large left pleural effusion. #4 Paroxysmal atrial fibrillation. #5 Acute renal failure, creatinine 4.06. #6 Hyperkalemia secondary to renal failure, improved #7 History of coronary artery disease. #8 History of chronic obstructive pulmonary disease. #9 Hypertension, history of. #10 Hyperlipidemia. #11 History of gout. #12 Bacteremia with gram-positive cocci in groups. Plan: The patient was seen and evaluated by Dr. Anne. His chest x-ray, ABGs and labs were reviewed. We'll continue with his current vent settings. We'll repeat the chest x-ray and ABGs in the a.m. No plans for extubation today. The patient has been initiated on vancomycin. His right femoral arterial line will be discontinued as will the right femoral venous triple-lumen catheter. A left IJ triple-lumen was placed. A right radial arterial line was placed. We' ll continue to wean down the norepinephrine while keeping mean arterial pressure greater than 60. In the interim we'll continue with bronchodilators every 4 hours. He remains on heparin subcutaneous for DVT prophylaxis and Protonix for GI prophylaxis. We'll increase the free water as his deficit is 3.4 L. We will continue to follow and make further recommendations based on his clinical status. Dr. Anne did have a lengthy discussion with the patient's family and they are going to see how the next 24-48 hours goes. They may end up choosing to remove the patient from life support if there is no significant progress versus planning for tracheostomy and PEG placements. Critical care time 38 minutes not including procedures.
--- NOTE | 2017-04-19 10:14 | P.PN ---
Subjective Patient is seen in follow-up for acute kidney injury. Renal function is improving. Creatinine down to 2.5 today. Patient is currently intubated and sedated. He is still requiring 18 mics of levofed. His blood cultures are positive for gram-positive cocci. He is nonoliguric. Also maintained on tube feeds. Vital signs: Patient is hypotensive requiring vasopressor support. Also febrile. General: The patient appeared well nourished and normally developed. HEENT: Head exam is unremarkable. Neck is without jugular venous distension. LUNGS: Scattered rhonchi. Breath sounds decreased. HEART: Rate and Rhythm are regular. First and second heart sounds normal. No murmurs, rubs or gallops. ABDOMEN: Abdominal exam reveals normal bowel sounds. Non-tender and non- distended. EXTREMITITES: Trace edema. Objective - Vital Signs Vital signs: Vital Signs Temp 100.7 F H 04/19/17 08:00 Pulse 103 H 04/19/17 08:00 Resp 27 H 04/19/17 08:00 BP 90/49 04/19/17 08:00 Pulse Ox 99 04/19/17 08:00 Intake & Output 04/18/17 04/19/17 04/19/17 18:59 06:59 18:59 Intake Total 2603.038 8999.181 319.146 Output Total 855 1590 195 Balance 748.837 -94.819 124.146 Weight 123.5 kg 120.5 kg Intake: IV 1229 776 46 0,9 normal saline bolus 1000 0.9 220 240 20 0.9 for pressure 9 36 6 Dextrose 5% in Water 1, 20 000 ml @ 20 mls/hr IV . Q24H [facility] Rx#:[id number] Vancomycin 2,000 mg In 500 Sodium Chloride 0.9% 500 ml @ 167 mls/hr IVPB ONCE ONE Rx#:[id number] Intake, IV Titration 344.837 349.181 123.146 Amount Norepinephrin 16 mg-0.9% 237.875 107.628 68.216 Ns Pmx 16 mg In 250 ml @ Titrate IV .Q0M [facility] Rx#: [id number] Propofol 50 ml As IV .STK 21 -MED ONE Rx#:[id number] Propofol 500 mg In Empty 106.962 241.553 33.93 Bag 1 bag @ Titrate IV . Q0M [facility] Rx#:[id number] Oral 0 Tube Feeding 30 260 50 Other 110 100 Output: Urine 855 1590 195 Other: Voiding Method Indwelling Catheter Indwelling Catheter # Voids 0 # Bowel Movements 0 0 ABP, PAP, CO, CI - Last Documented Arterial Blood Pressure 92/52 - Labs CBC & Chem 7: 04/19/17 04:30 04/19/17 04:30 Labs: Abnormal Lab Results - Last 24 Hours (Table) 04/18/17 04/18/17 04/19/17 Range/Units 20:45 20:46 00:41 WBC (3.8-10.6) k/uL RBC (4.30-5.90) m/uL Hgb (13.0-17.5) gm/dL Hct (39.0-53.0) % MCV (80.0-100.0) fL RDW (11.5-15.5) % Plt Count (150-450) k/uL Neutrophils # (1.3-7.7) k/uL Lymphocytes # (1.0-4.8) k/uL ABG pO2 (83-108) mmHg ABG Total CO2 (19-24) mmol/L ABG O2 Saturation (94-97) % Sodium 147 H (137-145) mmol/L Chloride (98-107) mmol/L BUN 109 H* (9-20) mg/dL Creatinine 3.10 H (0.66-1.25) mg/dL Glucose 132 H (74-99) mg/dL POC Glucose (mg/dL) 129 H 129 H (75-99) mg/dL ALT 80 H (21-72) U/L Total Protein 5.2 L (6.3-8.2) g/dL Albumin 2.7 L (3.5-5.0) g/dL 04/19/17 04/19/17 04/19/17 Range/Units 04:30 04:30 04:34 WBC 18.4 H (3.8-10.6) k/uL RBC 3.80 L (4.30-5.90) m/uL Hgb 12.5 L (13.0-17.5) gm/dL Hct 38.1 L (39.0-53.0) % MCV 100.2 H (80.0-100.0) fL RDW 15.9 H (11.5-15.5) % Plt Count 97 L (150-450) k/uL Neutrophils # 17.4 H (1.3-7.7) k/uL Lymphocytes # 0.3 L (1.0-4.8) k/uL ABG pO2 67 L (83-108) mmHg ABG Total CO2 25 H (19-24) mmol/L ABG O2 Saturation 93.0 L (94-97) % Sodium 148 H (137-145) mmol/L Chloride 110 H (98-107) mmol/L BUN 103 H* (9-20) mg/dL Creatinine 2.50 H (0.66-1.25) mg/dL Glucose 142 H (74-99) mg/dL POC Glucose (mg/dL) (75-99) mg/dL ALT (21-72) U/L Total Protein (6.3-8.2) g/dL Albumin (3.5-5.0) g/dL Microbiology - Last 24 Hours (Table) 04/18/17 10:10 Blood Culture Gram Stain - Preliminary Blood 04/18/17 10:10 Blood Culture - Final Blood 04/18/17 11:00 Blood Culture Gram Stain - Preliminary Blood 04/18/17 11:00 Blood Culture - Final Blood 04/18/17 10:10 Urine Culture - Preliminary Urine,Catheterized Assessment and Plan Plan: Assessment: #1. Nonoliguric acute kidney injury secondary to ATN secondary to septic shock . Renal function improving with creatinine down to 2.5 today. #2. Systolic CHF with ejection fraction of 35-40%. #3. Hypotension due to septic shock on vasopressors. #4. Septic shock with G+ bacteremia. #5. Mild rhabdomyolysis from fall. Patient was also on a statin as an outpatient. #6. Hypernatremia due to excessive free water losses from sepsis and lack of oral intake. Plan: Free water has been increased to 300 cc q4hr with TFs. Cont abx. F/u cultures. Wean vasopressors as tolerated. Family considering comfort measures as well.
[2017-04-19 12:04] VITALS: RESP 28
[2017-04-19] MEDS: NOREPINEPHRIN 16 MG-0.9%NS PMX 16 MG/250 ML ML IV SCH (12:04)
[2017-04-19 13:09] LABS: Glucose,Whole Blood 184 mg/dL (75-99)
[2017-04-19 13:42] LABS: Magnesium 2.5 mg/dL (1.6-2.3); Potassium 4.1 mmol/L (3.5-5.1)
[2017-04-19] MEDS: ACETAMINOPHEN TAB 325 MG TAB PO PRN (14:36)
[2017-04-19] MEDS ORDERED: LORazepam 2 MG/ML SYRINGE IV PRN (15:09)
[2017-04-19] MEDS ORDERED: MORPHINE SULFATE 2 MG/ML SYRINGE IV PRN (15:09)
[2017-04-19] MEDS ORDERED: SODIUM CHLORIDE 0.9% 1,000 ML IV SCH (15:15)
--- NOTE | 2017-04-19 15:58 | PCN ---
PROCEDURE: Left internal jugular triple-lumen catheter. PREOPERATIVE DIAGNOSIS: Fluid administration and administration of pressors. POSTOPERATIVE DIAGNOSIS: Fluid administration and administration of pressors. ( ) There was no immediate complication. There was good blood return from all 3 ports. The catheter was sutured into place. Sterile dressing was applied by the nurse. A chest x-ray was ordered to check placement and rule out pneumothorax. There was no immediate complication. One of the ports will be used for CVP monitoring. MTDD
[2017-04-19] MEDS ORDERED: MORPHINE SULFATE (100 MG/2 ML) 100 MG in SODIUM CHLORIDE 0.9% 100 ML IV SCH (16:00)
--- NOTE | 2017-04-19 16:03 | P.PN ---
Subjective This is a 82-year-old gentleman with history of objective sleep apnea obesity hypertension previous history of tobacco use comes in to the hospital with complains of difficulty breathing and falls for the last 7 days Patient states that the he normally uses 3-4 L of supplemental oxygen has history of obstructive sleep apnea and uses the CPAP at night Patient apparently has been hypoxic on his basal count of oxygen and has been extremely weak. Patient does not have any history of congestive heart failure/ any history of CAD In the emergency room chest x-ray showed some concerns for mild cephalization. A BNP was elevated to 15,000 Renal dysfunction was noted At the time of my evaluation patient states that he feels slightly improved from admission No headaches blurry vision chest pain abdominal pain urinary urgency or frequency or lower extremity edema is reported no weight gain is reported no orthopnea or PND is reported apnea PND is reported Fabiano 04/13 2017 Patient states that the she is feeling slightly better is on 10 L of supplemental oxygen Denies having any headaches blurry vision nausea vomiting diarrhea 04/14/2017 Patient denies having any chest pain difficulty in breathing nausea vomiting States that his breathing is improved from previous days No diarrhea is reported 04/15/2017 Patient is doing better No fevers chills nausea vomiting diarrhea reported Since his breathing is significantly improved 04/16/2017 Patient's CPAP apparently stopped abruptly working overnight Has had an episode of significant respiratory distress this morning Had to be started on BiPAP at 10 over 5 at 50% FiO2 Patient is awake is able to answer questions states to be feeling okay denies having any chest pain headaches blurry vision diarrhea 04/17/2017 Patient is clinically worsen or night has not been tolerating BiPAP or graft patient previously has stated that he would like to be DO NOT RESUSCITATE and no aggressive measures including hemodialysis at one point However has change his mind and stated that he would want endotracheal intubation and support Discussed the case with pulmonary critical care physician as well. Family to agree those with the previous recommendations however they would like to attempt a short duration of nonsupport During the time of my evaluation patient is not arousable 04/18/2017 Patient is intubated and sedated A significant decrease in need for vasopressor support However continues to be on vasopressor support a significant amount of support on the ventilator 2016 Patient continues to be intubated and sedated Patient is requiring higher amount of vasopressor support Objective - Vital Signs Vital signs: Vital Signs Temp 100.7 F H 04/19/17 11:00 Pulse 119 H 04/19/17 14:00 Resp 28 H 04/19/17 12:00 BP 75/39 04/19/17 11:00 Pulse Ox 89 L 04/19/17 14:00 Intake & Output 04/18/17 04/19/17 04/19/17 18:59 06:59 18:59 Intake Total 8861.224 3096.181 1923.042 Output Total 855 1590 655 Balance 748.837 -94.819 1268.042 Weight 123.5 kg 120.5 kg 120.5 kg Intake: IV 1229 776 287 0,9 normal saline bolus 1000 0.9 220 240 20 0.9 for pressure 9 36 27 Dextrose 5% in Water 1, 240 000 ml @ 20 mls/hr IV . Q24H ONE Rx#:[id number] Vancomycin 2,000 mg In 500 Sodium Chloride 0.9% 500 ml @ 167 mls/hr IVPB ONCE ONE Rx#:[id number] Intake, IV Titration 344.837 349.181 596.042 Amount Magnesium Sulfate-D5w Pmx 200 1 gm In Dextrose/Water 1 100ml.bag @ 100 mls/hr IVPB Q1H [facility] Rx#: [id number] Morphine Sulfate (100 mg/ 1 2 ml) 100 mg In Sodium Chloride 0.9% 100 ml @ 1 MG/HR 1.02 mls/hr IV . Q24H [facility] Rx#:[id number] Norepinephrin 16 mg-0.9% 237.875 107.628 150.764 Ns Pmx 16 mg In 250 ml @ Titrate IV .Q0M [facility] Rx#: [id number] Propofol 50 ml As IV .STK 129.8 -MED ONE Rx#:[id number] Propofol 500 mg In Empty 106.962 241.553 94.478 Bag 1 bag @ Titrate IV . Q0M [facility] Rx#:[id number] Sodium Chloride 0.9% 1, 20 000 ml @ 20 mls/hr IV . Q24H [facility] Rx#:[id number] Oral 0 0 Tube Feeding 30 260 640 Other 110 400 Output: Urine 855 1590 655 Other: Voiding Method Indwelling Catheter Indwelling Catheter Indwelling Catheter # Voids 0 0 # Bowel Movements 0 0 0 ABP, PAP, CO, CI - Last Documented Arterial Blood Pressure 89/46 - Exam Gen. appearance not arousable. Intubated and sedated Lungs diminished breath sounds, significant crackles or rhonchi appreciated today Heart S1-S2 heard regular rate and rhythm no murmurs appreciated Abdomen is soft nontender no organomegaly however large/obese Lower extremities trace edema chronic skin changes Neuro deferred - Labs CBC & Chem 7: 04/19/17 04:30 04/19/17 13:09 Labs: Abnormal Lab Results - Last 24 Hours (Table) 04/18/17 04/18/17 04/19/17 Range/Units 20:45 20:46 00:41 WBC (3.8-10.6) k/uL RBC (4.30-5.90) m/uL Hgb (13.0-17.5) gm/dL Hct (39.0-53.0) % MCV (80.0-100.0) fL RDW (11.5-15.5) % Plt Count (150-450) k/uL Neutrophils # (1.3-7.7) k/uL Lymphocytes # (1.0-4.8) k/uL ABG pO2 (83-108) mmHg ABG Total CO2 (19-24) mmol/L ABG O2 Saturation (94-97) % Sodium 147 H (137-145) mmol/L Chloride (98-107) mmol/L BUN 109 H* (9-20) mg/dL Creatinine 3.10 H (0.66-1.25) mg/dL Glucose 132 H (74-99) mg/dL POC Glucose (mg/dL) 129 H 129 H (75-99) mg/dL Magnesium (1.6-2.3) mg/dL ALT 80 H (21-72) U/L Total Protein 5.2 L (6.3-8.2) g/dL Albumin 2.7 L (3.5-5.0) g/dL 04/19/17 04/19/17 04/19/17 Range/Units 04:30 04:30 04:34 WBC 18.4 H (3.8-10.6) k/uL RBC 3.80 L (4.30-5.90) m/uL Hgb 12.5 L (13.0-17.5) gm/dL Hct 38.1 L (39.0-53.0) % MCV 100.2 H (80.0-100.0) fL RDW 15.9 H (11.5-15.5) % Plt Count 97 L (150-450) k/uL Neutrophils # 17.4 H (1.3-7.7) k/uL Lymphocytes # 0.3 L (1.0-4.8) k/uL ABG pO2 67 L (83-108) mmHg ABG Total CO2 25 H (19-24) mmol/L ABG O2 Saturation 93.0 L (94-97) % Sodium 148 H (137-145) mmol/L Chloride 110 H (98-107) mmol/L BUN 103 H* (9-20) mg/dL Creatinine 2.50 H (0.66-1.25) mg/dL Glucose 142 H (74-99) mg/dL POC Glucose (mg/dL) (75-99) mg/dL Magnesium (1.6-2.3) mg/dL ALT (21-72) U/L Total Protein (6.3-8.2) g/dL Albumin (3.5-5.0) g/dL 04/19/17 04/19/17 Range/Units 13:07 13:09 WBC (3.8-10.6) k/uL RBC (4.30-5.90) m/uL Hgb (13.0-17.5) gm/dL Hct (39.0-53.0) % MCV (80.0-100.0) fL RDW (11.5-15.5) % Plt Count (150-450) k/uL Neutrophils # (1.3-7.7) k/uL Lymphocytes # (1.0-4.8) k/uL ABG pO2 (83-108) mmHg ABG Total CO2 (19-24) mmol/L ABG O2 Saturation (94-97) % Sodium (137-145) mmol/L Chloride (98-107) mmol/L BUN (9-20) mg/dL Creatinine (0.66-1.25) mg/dL Glucose (74-99) mg/dL POC Glucose (mg/dL) 184 H (75-99) mg/dL Magnesium 2.5 H (1.6-2.3) mg/dL ALT (21-72) U/L Total Protein (6.3-8.2) g/dL Albumin (3.5-5.0) g/dL Microbiology - Last 24 Hours (Table) 04/18/17 10:10 Urine Culture - Preliminary Urine,Catheterized Group D Enterococcus 04/19/17 10:38 Catheter Tip Culture - Preliminary Catheter Tip 04/19/17 10:38 Catheter Tip Culture - Preliminary Catheter Tip 04/17/17 14:35 Gram Stain - Final Sputum Sputum Culture - Final Haemophilus influenzae 04/18/17 11:00 Blood Culture Gram Stain - Preliminary Blood 04/18/17 10:10 Blood Culture Gram Stain - Preliminary Blood 04/18/17 10:10 Blood Culture - Final Blood 04/18/17 11:00 Blood Culture - Final Blood Assessment and Plan Plan: Difficulty in breathing this is likely due to an acute exacerbation of systolic heart failure Shock likely combined distributive and cardiogenic Mild to moderate pulmonary hypertension Objective sleep apnea Acute on chronic hypoxic and hypercapnic respiratory failure Acute kidney injury likely prerenal due to pump failure History of hypertension Dyslipidemia Obesity Acute non-Q-wave MT Plan Patient has slightly worsened With previous patient wishes family had a long meeting and has decided to withdraw care A terminal wean will be done patient will be kept comfortable family is to be at bedside
--- NOTE | 2017-04-19 16:15 | PCN ---
PROCEDURE: Right radial arterial line insertion. INDICATION: Hemodynamic monitoring. A time-out was completed verifying correct patient, procedure, site, positioning , and implant(s) or special equipment if applicable. Maurilio's test was performed to ensure adequate perfusion. The patients right wrist was prepped and draped in a sterile fashion. 1% Lidocaine was used to anesthetize the area. An 18G Arrow arterial line was introduced into the radial artery. The catheter was threaded over the guide wire and the needle was removed with appropriate pulsatile blood return. Blood loss was minimal. The catheter was then sutured in place to the skin and a sterile dressing applied. Perfusion to the extremity distal to the point of catheter insertion was checked and was found to be adequate. There were no immediate complications. VICK
[2017-04-19 16:23] VITALS: BP 83/44; PULSE 0
[2017-04-20] MEDS ORDERED: VANCOMYCIN 2,000 MG in SODIUM CHLORIDE 0.9% 500 ML IVPB ONE (06:00)
--- NOTE | 2017-05-14 14:56 | P.DS ---
Providers Date of admission: 04/12/17 09:55 Attending physician: Bob Hendrickson MD Consults: 04/12/17 09:55 Consult Physician Stat Consulting Provider: Zo Rodriguez Consult Reason/Comments: chf, elevated trop, arf Do you want consulting provider notified?: Already Contacted 04/12/17 09:57 Consult Physician Urgent Consulting Provider: Aminta Riggs Consult Reason/Comments: arf, chf Do you want consulting provider notified?: Yes 04/16/17 10:38 Consult Physician Urgent Consulting Provider: Jesse Anne Consult Reason/Comments: resp distress Do you want consulting provider notified?: Yes 04/19/17 00:34 Consult Physician Urgent Consulting Provider: Robert Valencia Consult Reason/Comments: positive blood cultures Do you want consulting provider notified?: Yes, Notify in am [facility] Course: This is a 82-year-old gentleman with history of objective sleep apnea obesity hypertension previous history of tobacco use comes in to the hospital with complains of difficulty breathing and falls for the last 7 days Patient states that the he normally uses 3-4 L of supplemental oxygen has history of obstructive sleep apnea and uses the CPAP at night Patient apparently has been hypoxic on his basal count of oxygen and has been extremely weak. Patient does not have any history of congestive heart failure/ any history of CAD In the emergency room chest x-ray showed some concerns for mild cephalization. A BNP was elevated to 15,000 Renal dysfunction was noted At the time of my evaluation patient states that he feels slightly improved from admission No headaches blurry vision chest pain abdominal pain urinary urgency or frequency or lower extremity edema is reported no weight gain is reported no orthopnea or PND is reported apnea PND is reported Fabiano 04/13 2017 Patient states that the she is feeling slightly better is on 10 L of supplemental oxygen Denies having any headaches blurry vision nausea vomiting diarrhea 04/14/2017 Patient denies having any chest pain difficulty in breathing nausea vomiting States that his breathing is improved from previous days No diarrhea is reported 04/15/2017 Patient is doing better No fevers chills nausea vomiting diarrhea reported Since his breathing is significantly improved 04/16/2017 Patient's CPAP apparently stopped abruptly working overnight Has had an episode of significant respiratory distress this morning Had to be started on BiPAP at 10 over 5 at 50% FiO2 Patient is awake is able to answer questions states to be feeling okay denies having any chest pain headaches blurry vision diarrhea 04/17/2017 Patient is clinically worsen or night has not been tolerating BiPAP or graft patient previously has stated that he would like to be DO NOT RESUSCITATE and no aggressive measures including hemodialysis at one point However has change his mind and stated that he would want endotracheal intubation and support Discussed the case with pulmonary obstetrics specialist as well. Family to agree those with the previous recommendations however they would like to attempt a short duration of nonsupport During the time of my evaluation patient is not arousable 04/18/2017 Patient is intubated and sedated A significant decrease in need for vasopressor support However continues to be on vasopressor support a significant amount of support on the ventilator 2016 Patient continues to be intubated and sedated Patient is requiring higher amount of vasopressor support - Exam Gen. appearance not arousable. 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 Acute kidney injury likely prerenal due to pump failure History of hypertension Dyslipidemia Obesity Acute non-Q-wave LA Plan pt after withdrawal of care Patient Condition at Discharge: Serious Plan - Discharge Summary New Discharge Prescriptions: No Action Metoprolol Tartrate [Lopressor] 12.5 mg PO BID Lisinopril [Prinivil] 10 mg PO HS Allopurinol [Zyloprim] 200 mg PO DAILY Potassium Chloride [Klor-Con 10] 10 meq PO DAILY Ipratropium/Albuterol Sulfate [Combivent Respimat Inhaler] 1 puff INHALATION RT-QID Simvastatin [Zocor] 80 mg PO HS Furosemide [Lasix] 40 mg PO DAILY Colchicine 0.6 mg PO DIRECTED PRN MDD 1.8MG PRN Reason: GOUT ATTACK Discharge Medication List Allopurinol [Zyloprim] 200 mg PO DAILY 06/01/14 [History] Furosemide [Lasix] 40 mg PO DAILY 06/01/14 [History] Ipratropium/Albuterol Sulfate [Combivent Respimat Inhaler] 1 puff INHALATION RT- QID 06/01/14 [History] Lisinopril [Prinivil] 10 mg PO HS 06/01/14 [History] Metoprolol Tartrate [Lopressor] 12.5 mg PO BID 06/01/14 [History] Potassium Chloride [Klor-Con 10] 10 meq PO DAILY 06/01/14 [History] Simvastatin [Zocor] 80 mg PO HS 06/01/14 [History] Colchicine 0.6 mg PO DIRECTED PRN MDD 1.8MG 04/12/17 [History] Follow up Appointment(s)/Referral(s): Chad Ashton DO [Primary Care Provider] - 1-2 days Discharge Disposition: - Preliminary Cause of Preliminary Cause of : heart failure
== END 2017-04-19 18:05 | disposition expired ==
LOC: EC 07:15 → 6SEL 09:55 → 6ICU 04-17 09:00
PROVIDERS: ADMIT Internal Medicine; ATTEND Internal Medicine
PROC: 4A133B1 Monitoring of Arterial Pressure, Peripheral, Percutaneous Approach (ICD-10-PCS; principal; 2017-04-17)
PROC: 4A133J1 Monitoring of Arterial Pulse, Peripheral, Percutaneous Approach (ICD-10-PCS; principal; 2017-04-17)
PROC: 03HY32Z Insertion of Monitoring Device into Upper Artery, Percutaneous Approach (ICD-10-PCS; principal; 2017-04-17)
PROC: 0BH18EZ Insertion of Endotracheal Airway into Trachea, Via Natural or Artificial Opening Endoscopic (ICD-10-PCS; 2017-04-17)
PROC: 5A1945Z Respiratory Ventilation, 24-96 Consecutive Hours (ICD-10-PCS; 2017-04-17)
PROC: 05HN33Z Insertion of Infusion Device into Left Internal Jugular Vein, Percutaneous Approach (ICD-10-PCS; 2017-04-19)
PROC: 4A133J1 Monitoring of Arterial Pulse, Peripheral, Percutaneous Approach (ICD-10-PCS; 2017-04-19)
PROC: 4A133B1 Monitoring of Arterial Pressure, Peripheral, Percutaneous Approach (ICD-10-PCS; 2017-04-19)
PROC: 03HY32Z Insertion of Monitoring Device into Upper Artery, Percutaneous Approach (ICD-10-PCS; 2017-04-19)
DX: I13.0 Hypertensive heart and chronic kidney disease with heart failure and stage 1 through stage 4 chronic kidney disease, or unspecified chronic kidney disease (principal); I50.23 Acute on chronic systolic (congestive) heart failure; I21.4 Non-ST elevation (NSTEMI) myocardial infarction; A41.89 Other specified sepsis; J96.21 Acute and chronic respiratory failure with hypoxia; N17.0 Acute kidney failure with tubular necrosis; E66.01 Morbid (severe) obesity due to excess calories; I42.9 Cardiomyopathy, unspecified; J96.22 Acute and chronic respiratory failure with hypercapnia; R65.21 Severe sepsis with septic shock; E87.0 Hyperosmolality and hypernatremia; M62.82 Rhabdomyolysis; J98.11 Atelectasis; R57.0 Cardiogenic shock; I27.2 Other secondary pulmonary hypertension; E87.5 Hyperkalemia; E78.5 Hyperlipidemia, unspecified; G47.33 Obstructive sleep apnea (adult) (pediatric); I25.10 Atherosclerotic heart disease of native coronary artery without angina pectoris; I48.0 Paroxysmal atrial fibrillation; J44.9 Chronic obstructive pulmonary disease, unspecified; M10.9 Gout, unspecified; N18.9 Chronic kidney disease, unspecified; W06.XXXA Fall from bed, initial encounter; Z79.899 Other long term (current) drug therapy; Z82.49 Family history of ischemic heart disease and other diseases of the circulatory system; Z87.891 Personal history of nicotine dependence; Z96.1 Presence of intraocular lens; Z96.642 Presence of left artificial hip joint; Z96.653 Presence of artificial knee joint, bilateral; Z98.41 Cataract extraction status, right eye; Z98.42 Cataract extraction status, left eye; Z99.81 Dependence on supplemental oxygen
CPT/HCPCS: 36415; 71010; 71250; 76775; 80048; 80053; 81001; 82533; 82550; 82553; 82570; 82805; 83605; 83735; 83880; 83935; 84100; 84132; 84156; 84300; 84484; 85025; 85610; 85730; 87040; 87070; 87077; 87086; 87186; 87205; 93005; 93306; 93970; 94002; 94003; 94640; 94660; 94760; 96365; 96376; 99291